=== PATIENT | male | born 1955 | race Caucasian/White ===

== ENCOUNTER 2019-01-19 18:22 | Inpatient (IN) | payer MEDICAID ==
[~2019-01-19] VITALS: Ht 172.7 cm; Wt 95.3 kg
[~2019-01-19 18:22] MED LIST: DONE10TA11 PO; LACT10SO7 MT; LEVE1000 PO; MEMA10TA2 PO; OLAN10TA3 PO; PHEN100C4 PO; PROP5POW MC
[2019-01-19] MEDS ORDERED: MORPHINE SULFATE 4 MG/ML CPJ (NOT FOR IM USE) IV STA (18:53)
[2019-01-19] MEDS ORDERED: SODIUM CHLORIDE 0.9% 1000ML BAG (SEPSIS BOLUS) IV ONE (19:00)
[2019-01-19] MEDS ORDERED: CEFTRIAXONE 1 G PREMIX 50 ML IV ONE (19:00)
[2019-01-19] MEDS ORDERED: LORAZEPAM 2MG/ML CPJ ONE ×3 (19:20→20:50)
[2019-01-19] MEDS ORDERED: ONDANSETRON HCL 4MG/2ML INJ ONE (19:23)
[2019-01-19 19:44] LABS: HEMATOCRIT. 47.4 % (42.0-52.0); HEMOGLOBIN. 15.9 g/dL (14.0-18.0); MEAN CORPUSCULAR HEMOGLOBIN 30.2 pg (28.0-32.0); MEAN CORPUSCULAR VOLUME 90.1 fL (80.0-94.0); MEAN PLATELET VOLUME 11.2 fl (7.4-10.4); PLATELET 181 x1000/uL (130-400); RED BLOOD CELL COUNT 5.27 mill/uL (4.7-6.1); RED CELL DISTRIBUTION WIDTH 13.2 % (11.6-14.6)
[2019-01-19 19:46] LABS: INR 1.1; PROTHROMBIN TIME 11.2 sec (9.6-11.0)
[2019-01-19 19:50] LABS: CHLORIDE 104 mEq/L (98-107)
[2019-01-19] MEDS ORDERED: PIPERACILLIN/TAZOBACTAM 3.375GM/50ML PREMIX IV ONE (20:00)
[2019-01-19] MEDS ORDERED: VANCOMYCIN 1 G PREMIX 200 ML IV SCH (20:00)
[2019-01-19] MEDS ORDERED: LORAZEPAM 2MG/ML CPJ IV ONE (20:15)
[2019-01-19] MEDS ORDERED: MIDAZOLAM HCL 50 MG in DEXTROSE 5% WATER 40 ML IV ONE (20:15)
[2019-01-19] MEDS ORDERED: FENTANYL CITRATE/PF 500 MCG in SODIUM CHLORIDE 0.9% 40 ML IV PRN (20:15)
[2019-01-19 20:16] LABS: CLARITY URINE CLOUDY (CLEAR); COLOR URINE DARK YELLOW (YELLOW); KETONES URINE TRACE (NEGATIVE); LEUKOCYTE ESTERASE URINE TRACE (NEGATIVE); NITRITE URINE NEGATIVE (NEGATIVE); OCCULT BLOOD URINE NEGATIVE (NEGATIVE); PH URINE 5.5 (4.5-8.0); PROTEIN URINE 2+ (NEGATIVE)
[2019-01-19 20:18] LABS: PLATELET ESTIMATE NORMAL
[2019-01-19] MEDS: FENTANYL 500 MCG in SODIUM CHLORIDE 0.9% 50 ML IV PRN (21:12)
[2019-01-19 21:29] LABS: BG CARBOXYHEMOGLOBIN 1.2 % (0.5-1.5); BG DEOXYHEMOGLOBIN 3.8 % (0.0-5.0); BG FRACTION INSPIRED OXYGEN 40; BG METHEMOGLOBIN 0.4 % (0.0-1.5); BG OXYGEN SATURATION 96.1 % (92.0-98.5); BG OXYHEMOGLOBIN 94.6 % (94.0-97.0); BG PCO2 42.3 mmHg (35.0-45.0); BG PO2 79.4 mmHg (75.0-100.0); BG SAMPLE SITE RIGHT RADIAL; BG TIDAL VOLUME(mL) 500 mL; BG TOTAL HEMOGLOBIN 13.9 g/dL (12.0-18.0); BG VENT MODE VENT - A/C; BG VENT RATE 12 set
[2019-01-19] MEDS: MIDAZOLAM HCL 50 MG in DEXTROSE 5% WATER 50ML IV PRN (22:04)
[2019-01-19] MEDS: IPRATROPIUM/ALBUTEROL 0.5-3(2.5)MG/3ML NEB HHN SCH (22:45)
[2019-01-19] MEDS ORDERED: IPRATROPIUM/ALBUTEROL 0.5-3(2.5)MG/3ML NEB NEB PRN (22:45)
[2019-01-19] MEDS ORDERED: DOCUSATE SODIUM 100MG CAPSULE PO PRN (22:45)
[2019-01-19] MEDS ORDERED: ONDANSETRON HCL 4MG/2ML INJ IV PRN (22:45)
[2019-01-20] VITALS (12 sets, daily range): BP systolic 94–131; BP diastolic 48–78
[2019-01-20 06:48] LABS: BASOPHILS % 0.5 % (0.0-2.0); EOSINOPHILS % 0.1 % (0.0-5.0); HEMATOCRIT. 39.7 % (42.0-52.0); HEMOGLOBIN. 13.8 g/dL (14.0-18.0); LYMPHOCYTES % 10.1 % (20.0-50.0); MEAN CORPUSCULAR HEMOGLOBIN 30.9 pg (28.0-32.0); MEAN CORPUSCULAR VOLUME 89.3 fL (80.0-94.0); MEAN PLATELET VOLUME 10.7 fl (7.4-10.4); MONOCYTES % 8.3 % (2.0-8.0); PLATELET 142 x1000/uL (130-400); RED BLOOD CELL COUNT 4.45 mill/uL (4.7-6.1); RED CELL DISTRIBUTION WIDTH 12.9 % (11.6-14.6)
[2019-01-20 06:54] LABS: CHLORIDE 109 mEq/L (98-107)
[2019-01-20 07:53] LABS: BG BASE EXCESS 3.6 mmol/L (-2.0-2.0); BG CARBOXYHEMOGLOBIN 0.9 % (0.5-1.5); BG DEOXYHEMOGLOBIN 1.9 % (0.0-5.0); BG FRACTION INSPIRED OXYGEN 50; BG HCO3 ACT 27.5 mmol/L (22.0-26.0); BG METHEMOGLOBIN 0.3 % (0.0-1.5); BG OXYGEN SATURATION 98.1 % (92.0-98.5); BG OXYHEMOGLOBIN 96.9 % (94.0-97.0); BG PH 7.466 (7.350-7.450); BG PO2 100.3 mmHg (75.0-100.0); BG SAMPLE SITE RIGHT RADIAL; BG TIDAL VOLUME(mL) 500 mL; BG TOTAL HEMOGLOBIN 14.5 g/dL (12.0-18.0); BG VENT MODE VENT - A/C; BG VENT RATE 12 set
[2019-01-20] MEDS: LORAZEPAM 2MG/ML CPJ IV PRN ×4 (07:53→17:29)
[2019-01-20] MEDS: MIDAZOLAM HCL 50 MG in DEXTROSE 5% WATER 50ML IV PRN ×3 (08:14→18:53)
[2019-01-20] MEDS: SODIUM CHLORIDE 0.9% 1,000 ML IV SCH ×2 (11:28→18:10)
[2019-01-20] MEDS ORDERED: ENOXAPARIN 40MG/0.4ML SYR SUBCUT NR (11:30)
[2019-01-20] MEDS ORDERED: PIPERACILLIN/TAZ 3.375G PREMIX 50 ML IV NR (11:30)
[2019-01-20] MEDS ORDERED: VANCOMYCIN 2,000 MG in DEXT 5% WATER 500 ML IV NR (11:45)
[2019-01-20] MEDS: FENTANYL 500 MCG in SODIUM CHLORIDE 0.9% 50 ML IV PRN ×2 (15:39→19:21)
[2019-01-20] MEDS: IPRATROPIUM/ALBUTEROL 0.5-3(2.5)MG/3ML NEB HHN SCH (16:00)
[2019-01-20 16:01] LABS: BASOPHILS % 0.2 % (0.0-2.0); EOSINOPHILS % 0.4 % (0.0-5.0); HEMATOCRIT. 39.3 % (42.0-52.0); HEMOGLOBIN. 13.5 g/dL (14.0-18.0); LYMPHOCYTES % 11.6 % (20.0-50.0); MEAN CORPUSCULAR HEMOGLOBIN 30.6 pg (28.0-32.0); MEAN CORPUSCULAR VOLUME 89.4 fL (80.0-94.0); MEAN PLATELET VOLUME 10.2 fl (7.4-10.4); MONOCYTES % 7.6 % (2.0-8.0); NEUTROPHILS % 80.2 % (40.0-76.0); PLATELET 141 x1000/uL (130-400); RED CELL DISTRIBUTION WIDTH 12.8 % (11.6-14.6)
[2019-01-20 16:09] LABS: INR 1.1; PROTHROMBIN TIME 10.9 sec (9.6-11.0)
[2019-01-20 16:10] LABS: CHLORIDE 107 mEq/L (98-107)
[2019-01-20 16:19] LABS: CREATINE KINASE 41 IU/L (39-308)
[2019-01-20 16:20] LABS: CREATINE KINASE MB FRACTION < 1.0 ng/mL (0.5-3.6)
[2019-01-20] MEDS ORDERED: LEVETIRACETAM 500MG PREMIX 100 ML IV NR (16:58)
[2019-01-20] MEDS ORDERED: PIPERACILLIN/TAZ 3.375G PREMIX 50 ML IV SCH ×2 (18:00→19:15)
[2019-01-20] MEDS: PROPOFOL 10MG/ML 100ML 100 ML IV SCH (20:16)
[2019-01-20 21:07] LABS: T4 FREE 1.11 ng/dL (0.76-1.46)
[2019-01-20 21:28] LABS: FOLIC ACID (FOLATE) SERUM 10.2 ng/mL (>5.38)
[2019-01-20] MEDS: VANCOMYCIN 1 G PREMIX 200 ML IV SCH (23:26)
[2019-01-21] VITALS (92 sets, daily range): BP systolic 62–151; BP diastolic 27–83
[2019-01-21] MEDS: IPRATROPIUM/ALBUTEROL 0.5-3(2.5)MG/3ML NEB HHN SCH ×6 (00:11→20:47)
[2019-01-21] MEDS: MIDAZOLAM HCL 50 MG in DEXTROSE 5% WATER 40 ML IV PRN ×3 (01:07→18:31)
[2019-01-21] MEDS: FENTANYL CITRATE/PF 500 MCG in SODIUM CHLORIDE 0.9% 40 ML IV PRN ×3 (01:08→17:45)
[2019-01-21] MEDS: SODIUM CHLORIDE 0.9% 1,000 ML IV SCH (01:08)
[2019-01-21] MEDS: PIPERACILLIN/TAZOBACTAM 3.375 G in DEXT 5% WATER 100 ML IV SCH ×3 (04:59→22:03)
[2019-01-21 06:48] LABS: BASOPHILS % 0.5 % (0.0-2.0); EOSINOPHILS % 1.2 % (0.0-5.0); HEMATOCRIT. 39.4 % (42.0-52.0); HEMOGLOBIN. 13.5 g/dL (14.0-18.0); LYMPHOCYTES % 11.4 % (20.0-50.0); MEAN CORPUSCULAR HEMOGLOBIN 30.8 pg (28.0-32.0); MEAN CORPUSCULAR VOLUME 90.1 fL (80.0-94.0); MEAN PLATELET VOLUME 10.9 fl (7.4-10.4); NEUTROPHILS % 77.9 % (40.0-76.0); PLATELET 139 x1000/uL (130-400); RED BLOOD CELL COUNT 4.38 mill/uL (4.7-6.1)
[2019-01-21] MEDS: VANCOMYCIN 1 G PREMIX 200 ML IV SCH ×2 (07:32→15:06)
[2019-01-21] MEDS: PROPOFOL 10MG/ML 100ML 100 ML IV SCH (07:35)
[2019-01-21 08:11] LABS: CHLORIDE 110 mEq/L (98-107)
[2019-01-21 08:25] LABS: BG BASE EXCESS -0.4 mmol/L (-2.0-2.0); BG CARBOXYHEMOGLOBIN 0.3 % (0.5-1.5); BG DEOXYHEMOGLOBIN 1.3 % (0.0-5.0); BG FRACTION INSPIRED OXYGEN 50; BG OXYGEN SATURATION 98.7 % (92.0-98.5); BG OXYHEMOGLOBIN 98.4 % (94.0-97.0); BG PCO2 43.8 mmHg (35.0-45.0); BG PH 7.374 (7.350-7.450); BG PO2 139.8 mmHg (75.0-100.0); BG SAMPLE SITE RIGHT RADIAL; BG TIDAL VOLUME(mL) 500 mL; BG TOTAL HEMOGLOBIN 14.6 g/dL (12.0-18.0); BG VENT MODE VENT - A/C; BG VENT RATE 12 set
[2019-01-21] MEDS: LORAZEPAM 2MG/ML CPJ IV PRN (08:58)
[2019-01-21] MEDS: ACETAMINOPHEN 325MG TABLET PO PRN (08:59)
[2019-01-21] MEDS ORDERED: LEVETIRACETAM 500 MG in SODIUM CHLORIDE 0.9% 100 ML IV SCH (09:00)
[2019-01-21] MEDS ORDERED: ENOXAPARIN 30MG/0.3ML SYR SUBCUT SCH (09:00)
[2019-01-21] MEDS ORDERED: NOREPINEPHRINE 4MG/250ML PMX 250 ML IV ONE (11:00)
[2019-01-21] MEDS ORDERED: PHENYLEPHRINE 20 MG in DEXT 5% WATER 248 ML IV PRN (11:00)
[2019-01-21] MEDS: PANTOPRAZOLE SODIUM 40 MG/VIAL IV SCH (11:43)
[2019-01-21] MEDS ORDERED: POTASSIUM CHLORIDE INJ 40 MEQ in DEXT 5% WATER 250 ML IV NR (13:00)
[2019-01-21] MEDS ORDERED: LIDOCAINE HCL 1% 20ML VIAL (Pyxis) INJ ONE (14:07)
[2019-01-21] MEDS: NOREPINEPHRINE 4 MG in DEXTROSE 5% WATER 250 ML IV PRN (15:08)
[2019-01-21] MEDS: PHENYTOIN SODIUM 100MG/2ML VIAL IV SCH (22:02)
[2019-01-21] MEDS: LEVETIRACETAM 1,000 MG in SODIUM CHLORIDE 0.9% 100 ML IV SCH (22:03)
[2019-01-22] VITALS (97 sets, daily range): BP systolic 82–146; BP diastolic 41–90
[2019-01-22] MEDS ORDERED: LEVE10006 PO (00:24)
[2019-01-22] MEDS ORDERED: OLAN10TA19 PO (00:24)
[2019-01-22] MEDS ORDERED: PHEN100C12 PO (00:24)
[2019-01-22] MEDS ORDERED: LACT10SO7 PO (00:24)
[2019-01-22] MEDS ORDERED: MEMA10TA55 PO (00:24)
[2019-01-22] MEDS ORDERED: DONE10TA43 PO (00:24)
[2019-01-22] MEDS: VANCOMYCIN 1250MG in DEXTROSE 5% WATER 250ML IV SCH ×4 (00:31→23:14)
[2019-01-22] MEDS: IPRATROPIUM/ALBUTEROL 0.5-3(2.5)MG/3ML NEB HHN SCH ×6 (00:41→20:26)
[2019-01-22] MEDS: FENTANYL CITRATE/PF 500 MCG in SODIUM CHLORIDE 0.9% 40 ML IV PRN ×3 (03:58→23:41)
[2019-01-22] MEDS: MIDAZOLAM HCL 50 MG in DEXTROSE 5% WATER 40 ML IV PRN ×3 (03:59→23:42)
[2019-01-22] MEDS: PIPERACILLIN/TAZOBACTAM 3.375 G in DEXT 5% WATER 100 ML IV SCH ×3 (06:38→21:25)
[2019-01-22] MEDS: PANTOPRAZOLE SODIUM 40 MG/VIAL IV SCH (08:12)
[2019-01-22 08:57] LABS: BASOPHILS % 0.6 % (0.0-2.0); EOSINOPHILS % 2.6 % (0.0-5.0); HEMATOCRIT. 31.8 % (42.0-52.0); HEMOGLOBIN. 10.7 g/dL (14.0-18.0); LYMPHOCYTES % 12.9 % (20.0-50.0); MEAN CORPUSCULAR HEMOGLOBIN 30.3 pg (28.0-32.0); MEAN CORPUSCULAR VOLUME 89.7 fL (80.0-94.0); MEAN PLATELET VOLUME 10.9 fl (7.4-10.4); MONOCYTES % 9.7 % (2.0-8.0); NEUTROPHILS % 74.2 % (40.0-76.0); PLATELET 136 x1000/uL (130-400); RED BLOOD CELL COUNT 3.54 mill/uL (4.7-6.1); RED CELL DISTRIBUTION WIDTH 12.6 % (11.6-14.6)
[2019-01-22 09:38] LABS: CHLORIDE 111 mEq/L (98-107)
[2019-01-22] MEDS: SODIUM CHLORIDE 0.9% 1,000 ML IV SCH (10:41)
[2019-01-22] MEDS: LEVETIRACETAM 1,000 MG in SODIUM CHLORIDE 0.9% 100 ML IV SCH (10:41)
[2019-01-22] MEDS ORDERED: KCL 20MEQ/100ML PREMIX 100 ML IV SCH ×2 (12:00→14:00)
[2019-01-22] MEDS ORDERED: PHENYTOIN SODIUM 100MG/2ML VIAL IV NR (13:30)
[2019-01-22] MEDS: LORAZEPAM 2MG/ML CPJ IV PRN (15:02)
[2019-01-22] MEDS ORDERED: VASOPRESSIN 10 UNIT in SODIUM CHLORIDE 0.9% 99.5 ML IV PRN (15:30)
[2019-01-22] MEDS: PHENYTOIN SODIUM 100MG/2ML VIAL IV SCH (21:25)
[2019-01-22] MEDS: LEVETIRACETAM 1,500 MG in SODIUM CHLORIDE 0.9% 100 ML IV SCH (21:36)
[2019-01-23] VITALS (98 sets, daily range): BP systolic 80–154; BP diastolic 39–88
[2019-01-23] MEDS: IPRATROPIUM/ALBUTEROL 0.5-3(2.5)MG/3ML NEB HHN SCH ×6 (00:17→20:23)
[2019-01-23] MEDS: SODIUM CHLORIDE 0.9% 1,000 ML IV SCH ×2 (04:55→18:37)
[2019-01-23] MEDS: LORAZEPAM 2MG/ML CPJ IV PRN (05:08)
[2019-01-23 05:39] LABS: BASOPHILS % 0.5 % (0.0-2.0); HEMATOCRIT. 40.1 % (42.0-52.0); HEMOGLOBIN. 13.4 g/dL (14.0-18.0); LYMPHOCYTES % 14.9 % (20.0-50.0); MEAN PLATELET VOLUME 10.8 fl (7.4-10.4); MONOCYTES % 10.6 % (2.0-8.0); PLATELET 173 x1000/uL (130-400); RED BLOOD CELL COUNT 4.46 mill/uL (4.7-6.1); RED CELL DISTRIBUTION WIDTH 12.9 % (11.6-14.6)
[2019-01-23] MEDS: MIDAZOLAM HCL 50 MG in DEXTROSE 5% WATER 40 ML IV PRN ×3 (05:45→19:41)
[2019-01-23] MEDS: FENTANYL CITRATE/PF 500 MCG in SODIUM CHLORIDE 0.9% 40 ML IV PRN ×3 (05:45→18:38)
[2019-01-23 05:47] LABS: CHLORIDE 106 mEq/L (98-107)
[2019-01-23] MEDS: PIPERACILLIN/TAZOBACTAM 3.375 G in DEXT 5% WATER 100 ML IV SCH ×3 (07:15→21:14)
[2019-01-23] MEDS: VANCOMYCIN 1250MG in DEXTROSE 5% WATER 250ML IV SCH (07:15)
[2019-01-23] MEDS ORDERED: MAGNESIUM 1 G PREMIX 100 ML IV NR (08:00)
[2019-01-23] MEDS ORDERED: KCL 20MEQ/100ML PREMIX 100 ML IV NR (09:00)
[2019-01-23] MEDS: PANTOPRAZOLE SODIUM 40 MG/VIAL IV SCH (09:06)
[2019-01-23] MEDS: LEVETIRACETAM 1,500 MG in SODIUM CHLORIDE 0.9% 100 ML IV SCH ×2 (10:34→21:14)
[2019-01-23] MEDS ORDERED: POTASSIUM CHLORIDE INJ 40 MEQ in DEXT 5% WATER 250 ML IV NR (11:00)
[2019-01-23 15:54] LABS: BG BASE EXCESS 5.6 mmol/L (-2.0-2.0); BG CARBOXYHEMOGLOBIN 0.3 % (0.5-1.5); BG FRACTION INSPIRED OXYGEN 40; BG HCO3 ACT 30.8 mmol/L (22.0-26.0); BG METHEMOGLOBIN 0.1 % (0.0-1.5); BG OXYHEMOGLOBIN 96.6 % (94.0-97.0); BG PCO2 47.5 mmHg (35.0-45.0); BG PO2 96.6 mmHg (75.0-100.0); BG SAMPLE SITE RIGHT RADIAL; BG TIDAL VOLUME(mL) 500 mL; BG TOTAL HEMOGLOBIN 12.8 g/dL (12.0-18.0); BG VENT MODE VENT - A/C; BG VENT RATE 12 set
[2019-01-23] MEDS: PHENYTOIN SODIUM 100MG/2ML VIAL IV SCH (21:14)
[2019-01-24] VITALS (92 sets, daily range): BP systolic 76–149; BP diastolic 40–80
[2019-01-24] MEDS: IPRATROPIUM/ALBUTEROL 0.5-3(2.5)MG/3ML NEB HHN SCH ×6 (00:12→20:05)
[2019-01-24] MEDS: FENTANYL CITRATE/PF 500 MCG in SODIUM CHLORIDE 0.9% 40 ML IV PRN ×3 (02:07→23:00)
[2019-01-24] MEDS: MIDAZOLAM HCL 50 MG in DEXTROSE 5% WATER 40 ML IV PRN ×3 (02:09→23:00)
[2019-01-24] MEDS: VANCOMYCIN 1 G PREMIX 200 ML IV SCH ×2 (04:01→14:21)
[2019-01-24 06:00] LABS: BASOPHILS % 0.5 % (0.0-2.0); EOSINOPHILS % 5.3 % (0.0-5.0); HEMATOCRIT. 36.6 % (42.0-52.0); HEMOGLOBIN. 12.2 g/dL (14.0-18.0); MEAN CORPUSCULAR HEMOGLOBIN 30.1 pg (28.0-32.0); MEAN PLATELET VOLUME 10.3 fl (7.4-10.4); NEUTROPHILS % 76.2 % (40.0-76.0); PLATELET 185 x1000/uL (130-400); RED BLOOD CELL COUNT 4.06 mill/uL (4.7-6.1); RED CELL DISTRIBUTION WIDTH 12.9 % (11.6-14.6)
[2019-01-24 06:08] LABS: CHLORIDE 110 mEq/L (98-107)
[2019-01-24] MEDS: PIPERACILLIN/TAZOBACTAM 3.375 G in DEXT 5% WATER 100 ML IV SCH ×3 (06:36→22:31)
[2019-01-24] MEDS: LEVETIRACETAM 1,500 MG in SODIUM CHLORIDE 0.9% 100 ML IV SCH ×2 (08:10→21:00)
[2019-01-24] MEDS: PANTOPRAZOLE SODIUM 40 MG/VIAL IV SCH (08:10)
[2019-01-24] MEDS: NOREPINEPHRINE 4 MG in DEXTROSE 5% WATER 250 ML IV PRN (09:48)
[2019-01-24 10:01] LABS: PHOSPHORUS 2.5 mg/dL (2.5-4.9)
[2019-01-24] MEDS ORDERED: POTASSIUM CHLORIDE INJ 60 MEQ in DEXT 5% WATER 500 ML IV NR (11:00)
[2019-01-24] MEDS: SODIUM CHLORIDE 0.9% 1,000 ML IV SCH (14:22)
[2019-01-24] MEDS: PHENYTOIN SODIUM 100MG/2ML VIAL IV SCH (21:00)
[2019-01-25] VITALS (42 sets, daily range): BP systolic 102–173; BP diastolic 52–113
[2019-01-25] MEDS: IPRATROPIUM/ALBUTEROL 0.5-3(2.5)MG/3ML NEB HHN SCH ×7 (00:14→23:56)
[2019-01-25] MEDS: FENTANYL CITRATE/PF 500 MCG in SODIUM CHLORIDE 0.9% 40 ML IV PRN ×2 (03:22→11:56)
[2019-01-25] MEDS: VANCOMYCIN 1 G PREMIX 200 ML IV SCH ×2 (03:23→16:22)
[2019-01-25] MEDS: SODIUM CHLORIDE 0.9% 1,000 ML IV SCH ×2 (04:02→16:37)
[2019-01-25] MEDS: PIPERACILLIN/TAZOBACTAM 3.375 G in DEXT 5% WATER 100 ML IV SCH ×3 (06:00→21:03)
[2019-01-25 06:13] LABS: CHLORIDE 112 mEq/L (98-107)
[2019-01-25] MEDS: PANTOPRAZOLE SODIUM 40 MG/VIAL IV SCH (08:57)
[2019-01-25] MEDS: LEVETIRACETAM 1,500 MG in SODIUM CHLORIDE 0.9% 100 ML IV SCH ×2 (08:57→20:38)
[2019-01-25 13:02] LABS: HEMATOCRIT. 37.2 % (42.0-52.0); HEMOGLOBIN. 12.3 g/dL (14.0-18.0); MEAN CORPUSCULAR HEMOGLOBIN 29.9 pg (28.0-32.0); MEAN CORPUSCULAR VOLUME 90.1 fL (80.0-94.0); PLATELET 208 x1000/uL (130-400); RED BLOOD CELL COUNT 4.13 mill/uL (4.7-6.1); RED CELL DISTRIBUTION WIDTH 13.1 % (11.6-14.6)
[2019-01-25 13:36] LABS: CHLORIDE 112 mEq/L (98-107)
[2019-01-25] MEDS: PHENYTOIN SODIUM 100MG/2ML VIAL IV SCH (20:38)
[2019-01-25 21:00] LABS: PLATELET ESTIMATE NORMAL
[2019-01-25] MEDS ORDERED: FENTANYL CITRATE/PF 500 MCG in SODIUM CHLORIDE 0.9% 40 ML IV PRN (23:45)
[2019-01-26] VITALS (42 sets, daily range): BP systolic 111–163; BP diastolic 58–100
[2019-01-26] MEDS: VANCOMYCIN 1 G PREMIX 200 ML IV SCH (03:18)
[2019-01-26] MEDS: IPRATROPIUM/ALBUTEROL 0.5-3(2.5)MG/3ML NEB HHN SCH ×5 (04:01→20:16)
[2019-01-26] MEDS: PIPERACILLIN/TAZOBACTAM 3.375 G in DEXT 5% WATER 100 ML IV SCH ×3 (05:08→21:32)
[2019-01-26 06:01] LABS: EOSINOPHILS % 5.2 % (0.0-5.0); HEMATOCRIT. 32.8 % (42.0-52.0); HEMOGLOBIN. 11.1 g/dL (14.0-18.0); LYMPHOCYTES % 8.8 % (20.0-50.0); MEAN CORPUSCULAR HEMOGLOBIN 30.3 pg (28.0-32.0); MEAN CORPUSCULAR VOLUME 89.5 fL (80.0-94.0); MEAN PLATELET VOLUME 10.5 fl (7.4-10.4); MONOCYTES % 9.5 % (2.0-8.0); NEUTROPHILS % 75.5 % (40.0-76.0); PLATELET 220 x1000/uL (130-400); RED BLOOD CELL COUNT 3.67 mill/uL (4.7-6.1)
[2019-01-26 06:05] LABS: CHLORIDE 108 mEq/L (98-107)
[2019-01-26] MEDS: SODIUM CHLORIDE 0.9% 1,000 ML IV SCH ×2 (06:05→20:26)
[2019-01-26] MEDS: PANTOPRAZOLE SODIUM 40 MG/VIAL IV SCH (08:16)
[2019-01-26 08:46] LABS: PHOSPHORUS 2.3 mg/dL (2.5-4.9)
[2019-01-26] MEDS: LEVETIRACETAM 1,500 MG in SODIUM CHLORIDE 0.9% 100 ML IV SCH ×2 (09:21→21:31)
[2019-01-26] MEDS: HALOPERIDOL LACTATE 5MG/ML VIAL IM PRN (11:39)
[2019-01-26] MEDS ORDERED: POTASSIUM PHOS,M-BASIC-D-BASIC 30 MMOL in DEXT 5% WATER 500 ML IV SCH (12:00)
[2019-01-26] MEDS: VANCOMYCIN 1250MG in DEXTROSE 5% WATER 250ML IV SCH (15:23)
[2019-01-26 16:16] LABS: BG BASE EXCESS 4.3 mmol/L (-2.0-2.0); BG CARBOXYHEMOGLOBIN 0.2 % (0.5-1.5); BG DEOXYHEMOGLOBIN 1.9 % (0.0-5.0); BG FRACTION INSPIRED OXYGEN 40; BG HCO3 ACT 29.3 mmol/L (22.0-26.0); BG METHEMOGLOBIN 0.1 % (0.0-1.5); BG OXYGEN SATURATION 98.1 % (92.0-98.5); BG OXYHEMOGLOBIN 97.8 % (94.0-97.0); BG PCO2 45.2 mmHg (35.0-45.0); BG PO2 109.9 mmHg (75.0-100.0); BG PRESSURE SUPPORT 0; BG SAMPLE SITE RIGHT RADIAL; BG TIDAL VOLUME(mL) 500 mL; BG TOTAL HEMOGLOBIN 13.4 g/dL (12.0-18.0); BG VENT MODE VENT - SIMV; BG VENT RATE 12 set
[2019-01-26] MEDS: PHENYTOIN SODIUM 100MG/2ML VIAL IV SCH (21:31)
[2019-01-27] VITALS (38 sets, daily range): BP systolic 116–157; BP diastolic 65–85
[2019-01-27] MEDS: IPRATROPIUM/ALBUTEROL 0.5-3(2.5)MG/3ML NEB HHN SCH ×5 (00:15→20:26)
[2019-01-27] MEDS: VANCOMYCIN 1250MG in DEXTROSE 5% WATER 250ML IV SCH (03:44)
[2019-01-27] MEDS: PIPERACILLIN/TAZOBACTAM 3.375 G in DEXT 5% WATER 100 ML IV SCH (05:32)
[2019-01-27 06:19] LABS: BASOPHILS % 0.4 % (0.0-2.0); EOSINOPHILS % 5.1 % (0.0-5.0); HEMATOCRIT. 33.5 % (42.0-52.0); HEMOGLOBIN. 11.4 g/dL (14.0-18.0); LYMPHOCYTES % 8.9 % (20.0-50.0); MEAN CORPUSCULAR HEMOGLOBIN 30.5 pg (28.0-32.0); MEAN CORPUSCULAR VOLUME 89.8 fL (80.0-94.0); MEAN PLATELET VOLUME 10.7 fl (7.4-10.4); MONOCYTES % 8.5 % (2.0-8.0); NEUTROPHILS % 77.1 % (40.0-76.0); PLATELET 253 x1000/uL (130-400); RED BLOOD CELL COUNT 3.73 mill/uL (4.7-6.1); RED CELL DISTRIBUTION WIDTH 12.6 % (11.6-14.6)
[2019-01-27 06:28] LABS: CHLORIDE 108 mEq/L (98-107)
[2019-01-27 06:34] LABS: PHOSPHORUS 2.7 mg/dL (2.5-4.9)
[2019-01-27] MEDS: POTASSIUM CHLORIDE 20MEQ/PACKET PO SCH (08:53)
[2019-01-27] MEDS: LEVETIRACETAM 1,500 MG in SODIUM CHLORIDE 0.9% 100 ML IV SCH ×2 (08:53→20:56)
[2019-01-27] MEDS: PANTOPRAZOLE SODIUM 40 MG/VIAL IV SCH (08:53)
[2019-01-27] MEDS: SODIUM CHLORIDE 0.9% 1,000 ML IV SCH ×2 (12:20→22:21)
[2019-01-27] MEDS: PHENYTOIN SODIUM 100MG/2ML VIAL IV SCH (20:45)
[2019-01-28] VITALS (38 sets, daily range): BP systolic 113–168; BP diastolic 57–103
[2019-01-28] MEDS: IPRATROPIUM/ALBUTEROL 0.5-3(2.5)MG/3ML NEB HHN SCH ×6 (00:39→20:51)
[2019-01-28 06:18] LABS: BASOPHILS % 0.7 % (0.0-2.0); EOSINOPHILS % 3.8 % (0.0-5.0); HEMATOCRIT. 35.1 % (42.0-52.0); HEMOGLOBIN. 11.9 g/dL (14.0-18.0); LYMPHOCYTES % 8.6 % (20.0-50.0); MEAN CORPUSCULAR HEMOGLOBIN 30.2 pg (28.0-32.0); MEAN CORPUSCULAR VOLUME 89.6 fL (80.0-94.0); MEAN PLATELET VOLUME 10.5 fl (7.4-10.4); MONOCYTES % 8.2 % (2.0-8.0); NEUTROPHILS % 78.7 % (40.0-76.0); PLATELET 282 x1000/uL (130-400); RED BLOOD CELL COUNT 3.92 mill/uL (4.7-6.1); RED CELL DISTRIBUTION WIDTH 12.8 % (11.6-14.6)
[2019-01-28 06:33] LABS: CHLORIDE 109 mEq/L (98-107)
[2019-01-28] MEDS: POTASSIUM CHLORIDE 20MEQ/PACKET PO SCH (08:12)
[2019-01-28] MEDS: PANTOPRAZOLE SODIUM 40 MG/VIAL IV SCH (08:12)
[2019-01-28 09:46] LABS: BG BASE EXCESS 3.1 mmol/L (-2.0-2.0); BG CARBOXYHEMOGLOBIN 0.3 % (0.5-1.5); BG DEOXYHEMOGLOBIN 2.2 % (0.0-5.0); BG FRACTION INSPIRED OXYGEN 40; BG HCO3 ACT 27.9 mmol/L (22.0-26.0); BG METHEMOGLOBIN 0.2 % (0.0-1.5); BG OXYGEN SATURATION 97.8 % (92.0-98.5); BG OXYHEMOGLOBIN 97.3 % (94.0-97.0); BG PCO2 43.3 mmHg (35.0-45.0); BG PH 7.427 (7.350-7.450); BG PO2 111.2 mmHg (75.0-100.0); BG PRESSURE SUPPORT 12; BG SAMPLE SITE RIGHT RADIAL; BG TIDAL VOLUME(mL) 500 mL; BG TOTAL HEMOGLOBIN 12.9 g/dL (12.0-18.0); BG VENT MODE VENT - SIMV; BG VENT RATE 12 set
[2019-01-28] MEDS: LEVETIRACETAM 1,500 MG in SODIUM CHLORIDE 0.9% 100 ML IV SCH (09:54)
[2019-01-28] MEDS: SODIUM CHLORIDE 0.9% 1,000 ML IV SCH (12:26)
[2019-01-28] MEDS ORDERED: LORAZEPAM 2MG/ML CPJ IM PRN (18:30)
[2019-01-28] MEDS: LEVETIRACETAM 500MG/5ML CUP PO SCH (20:38)
[2019-01-28] MEDS: PHENYTOIN 100 MG/4 ML UDC NG SCH (20:39)
[2019-01-29] VITALS (43 sets, daily range): BP systolic 116–165; BP diastolic 66–121
[2019-01-29] MEDS: IPRATROPIUM/ALBUTEROL 0.5-3(2.5)MG/3ML NEB HHN SCH ×6 (00:25→20:10)
[2019-01-29] MEDS: SODIUM CHLORIDE 0.9% 1,000 ML IV SCH ×2 (01:26→15:43)
[2019-01-29 06:43] LABS: BASOPHILS % 0.8 % (0.0-2.0); EOSINOPHILS % 3.2 % (0.0-5.0); HEMATOCRIT. 35.6 % (42.0-52.0); MEAN CORPUSCULAR HEMOGLOBIN 30.1 pg (28.0-32.0); MEAN CORPUSCULAR VOLUME 89.2 fL (80.0-94.0); MEAN PLATELET VOLUME 10.8 fl (7.4-10.4); MONOCYTES % 6.5 % (2.0-8.0); NEUTROPHILS % 80.5 % (40.0-76.0); PLATELET 301 x1000/uL (130-400); RED CELL DISTRIBUTION WIDTH 12.9 % (11.6-14.6)
[2019-01-29 06:58] LABS: CHLORIDE 108 mEq/L (98-107)
[2019-01-29] MEDS: ENOXAPARIN 40MG/0.4ML SYR SUBCUT SCH (08:28)
[2019-01-29] MEDS: LEVETIRACETAM 500MG/5ML CUP PO SCH ×2 (08:28→21:00)
[2019-01-29] MEDS: POTASSIUM CHLORIDE 20MEQ/PACKET PO SCH (08:28)
[2019-01-29] MEDS: PANTOPRAZOLE SODIUM 40 MG/VIAL IV SCH (08:28)
[2019-01-29 10:11] LABS: BG BASE EXCESS 4.8 mmol/L (-2.0-2.0); BG DEOXYHEMOGLOBIN 2.1 % (0.0-5.0); BG FRACTION INSPIRED OXYGEN 40; BG HCO3 ACT 29.6 mmol/L (22.0-26.0); BG METHEMOGLOBIN 0.2 % (0.0-1.5); BG OXYGEN SATURATION 97.9 % (92.0-98.5); BG OXYHEMOGLOBIN 97.7 % (94.0-97.0); BG PCO2 44.6 mmHg (35.0-45.0); BG PO2 106.6 mmHg (75.0-100.0); BG PRESSURE SUPPORT 8; BG SAMPLE SITE RIGHT RADIAL; BG TOTAL HEMOGLOBIN 13.2 g/dL (12.0-18.0); BG VENT MODE VENT - CPAP
[2019-01-29] MEDS: PHENYTOIN 100 MG/4 ML UDC NG SCH (21:00)
[2019-01-29] MEDS: LORAZEPAM 2MG/ML CPJ IV PRN (22:18)
[2019-01-30] VITALS (40 sets, daily range): BP systolic 101–163; BP diastolic 49–103
[2019-01-30] MEDS: IPRATROPIUM/ALBUTEROL 0.5-3(2.5)MG/3ML NEB HHN SCH ×6 (00:10→21:11)
[2019-01-30] MEDS: SODIUM CHLORIDE 0.9% 1,000 ML IV SCH ×2 (05:03→17:40)
[2019-01-30] MEDS: PANTOPRAZOLE SODIUM 40 MG/VIAL IV SCH (08:14)
[2019-01-30] MEDS: POTASSIUM CHLORIDE 20MEQ/PACKET PO SCH (08:14)
[2019-01-30] MEDS: LEVETIRACETAM 500MG/5ML CUP PO SCH ×2 (08:14→22:49)
[2019-01-30] MEDS: ENOXAPARIN 40MG/0.4ML SYR SUBCUT SCH (08:15)
[2019-01-30 08:40] LABS: CHLORIDE 107 mEq/L (98-107)
[2019-01-30 08:50] LABS: BASOPHILS % 0.5 % (0.0-2.0); EOSINOPHILS % 2.2 % (0.0-5.0); HEMATOCRIT. 35.6 % (42.0-52.0); HEMOGLOBIN. 11.9 g/dL (14.0-18.0); LYMPHOCYTES % 7.1 % (20.0-50.0); MEAN CORPUSCULAR HEMOGLOBIN 29.7 pg (28.0-32.0); MEAN CORPUSCULAR VOLUME 88.7 fL (80.0-94.0); MEAN PLATELET VOLUME 10.5 fl (7.4-10.4); NEUTROPHILS % 84.2 % (40.0-76.0); PLATELET 331 x1000/uL (130-400); RED BLOOD CELL COUNT 4.01 mill/uL (4.7-6.1); RED CELL DISTRIBUTION WIDTH 12.9 % (11.6-14.6)
[2019-01-30] MEDS: LORAZEPAM 2MG/ML CPJ IV PRN ×2 (12:34→21:26)
[2019-01-30 17:14] LABS: CLARITY URINE CLEAR (CLEAR); COLOR URINE YELLOW (YELLOW); KETONES URINE NEGATIVE (NEGATIVE); LEUKOCYTE ESTERASE URINE NEGATIVE (NEGATIVE); NITRITE URINE NEGATIVE (NEGATIVE); OCCULT BLOOD URINE 2+ (NEGATIVE); PROTEIN URINE NEGATIVE (NEGATIVE); SPECIFIC GRAVITY URINE 1.011 (1.005-1.030); UROBILINOGEN URINE 0.2 E.U./dL (0.2-1.0)
[2019-01-30] MEDS: PHENYTOIN 100 MG/4 ML UDC NG SCH (21:08)
[2019-01-30] MEDS: ACETAMINOPHEN 325MG TABLET PO PRN (21:56)
[2019-01-31] VITALS (44 sets, daily range): BP systolic 119–172; BP diastolic 56–126
[2019-01-31] MEDS: IPRATROPIUM/ALBUTEROL 0.5-3(2.5)MG/3ML NEB HHN SCH ×6 (00:48→20:18)
[2019-01-31 05:58] LABS: BASOPHILS % 0.5 % (0.0-2.0); HEMOGLOBIN. 11.4 g/dL (14.0-18.0); LYMPHOCYTES % 7.9 % (20.0-50.0); MEAN CORPUSCULAR HEMOGLOBIN 30.1 pg (28.0-32.0); MEAN CORPUSCULAR VOLUME 89.3 fL (80.0-94.0); MEAN PLATELET VOLUME 10.9 fl (7.4-10.4); MONOCYTES % 5.3 % (2.0-8.0); NEUTROPHILS % 84.3 % (40.0-76.0); PLATELET 326 x1000/uL (130-400); RED CELL DISTRIBUTION WIDTH 12.9 % (11.6-14.6)
[2019-01-31 06:00] LABS: CHLORIDE 106 mEq/L (98-107)
[2019-01-31] MEDS: SODIUM CHLORIDE 0.9% 1,000 ML IV SCH ×2 (06:06→21:07)
[2019-01-31] MEDS: ENOXAPARIN 40MG/0.4ML SYR SUBCUT SCH (08:43)
[2019-01-31] MEDS: POTASSIUM CHLORIDE 20MEQ/PACKET PO SCH (08:43)
[2019-01-31] MEDS: PANTOPRAZOLE SODIUM 40 MG/VIAL IV SCH (08:43)
[2019-01-31] MEDS: LEVETIRACETAM 500MG/5ML CUP PO SCH ×2 (08:43→21:06)
[2019-01-31] MEDS: LORAZEPAM 2MG/ML CPJ IV PRN ×2 (09:05→18:05)
[2019-01-31] MEDS ORDERED: METHYLPREDNISOLONE SOD SUCC 125 MG/2 ML VIAL IV NR (17:45)
[2019-01-31] MEDS: METHYLPREDNISOLONE SOD SUCC 125 MG/2 ML VIAL IV SCH (21:06)
[2019-01-31] MEDS: PHENYTOIN 100 MG/4 ML UDC NG SCH (21:06)
[2019-02-01] VITALS (26 sets, daily range): BP systolic 99–150; BP diastolic 59–103
[2019-02-01] MEDS: IPRATROPIUM/ALBUTEROL 0.5-3(2.5)MG/3ML NEB HHN SCH ×6 (00:21→23:56)
[2019-02-01 08:49] LABS: HEMATOCRIT. 36.3 % (42.0-52.0); HEMOGLOBIN. 12.1 g/dL (14.0-18.0); MEAN CORPUSCULAR HEMOGLOBIN 29.9 pg (28.0-32.0); MEAN PLATELET VOLUME 11.1 fl (7.4-10.4); PLATELET 363 x1000/uL (130-400); RED BLOOD CELL COUNT 4.03 mill/uL (4.7-6.1); RED CELL DISTRIBUTION WIDTH 12.7 % (11.6-14.6)
[2019-02-01 08:56] LABS: CHLORIDE 104 mEq/L (98-107)
[2019-02-01] MEDS: LEVETIRACETAM 500MG/5ML CUP PO SCH ×2 (09:10→21:11)
[2019-02-01] MEDS: PANTOPRAZOLE SODIUM 40 MG/VIAL IV SCH (09:10)
[2019-02-01] MEDS: POTASSIUM CHLORIDE 20MEQ/PACKET PO SCH (09:10)
[2019-02-01] MEDS: SODIUM CHLORIDE 0.9% 1,000 ML IV SCH ×2 (09:11→21:12)
[2019-02-01] MEDS: ENOXAPARIN 40MG/0.4ML SYR SUBCUT SCH (09:33)
[2019-02-01] MEDS ORDERED: CEFAZOLIN 1000MG PREMIX 50 ML IV ONE (12:15)
[2019-02-01] MEDS: METHYLPREDNISOLONE SOD SUCC 125 MG/2 ML VIAL IV SCH ×2 (14:14→21:12)
[2019-02-01] MEDS: LORAZEPAM 2MG/ML CPJ IV PRN (14:14)
[2019-02-01 17:03] LABS: HEMATOCRIT 33.2 % (42.0-52.0); HEMOGLOBIN 10.4 g/dL (14.0-18.0); MEAN CORPUSCULAR HEMOGLOBIN 28.2 pg (28.0-32.0); MEAN CORPUSCULAR VOLUME 89.9 fL (80.0-94.0); PLATELET 327 x1000/uL (130-400); RED BLOOD CELL COUNT 3.69 mill/uL (4.7-6.1)
[2019-02-01 17:06] LABS: PLATELET ESTIMATE NORMAL
[2019-02-01] MEDS: PHENYTOIN 100 MG/4 ML UDC NG SCH (21:11)
[2019-02-02] VITALS (24 sets, daily range): BP systolic 104–147; BP diastolic 56–94
[2019-02-02] MEDS: IPRATROPIUM/ALBUTEROL 0.5-3(2.5)MG/3ML NEB HHN SCH ×6 (04:19→23:41)
[2019-02-02 05:31] LABS: HEMATOCRIT. 34.1 % (42.0-52.0); HEMOGLOBIN. 11.6 g/dL (14.0-18.0); MEAN CORPUSCULAR HEMOGLOBIN 30.3 pg (28.0-32.0); MEAN CORPUSCULAR VOLUME 89.3 fL (80.0-94.0); PLATELET 362 x1000/uL (130-400); RED BLOOD CELL COUNT 3.82 mill/uL (4.7-6.1)
[2019-02-02 05:36] LABS: PARTIAL THROMBOPLASTIN TIME 27.5 sec (23.4-31.0); PROTHROMBIN TIME 10.7 sec (9.6-11.0)
[2019-02-02 05:39] LABS: CHLORIDE 108 mEq/L (98-107)
[2019-02-02] MEDS: METHYLPREDNISOLONE SOD SUCC 125 MG/2 ML VIAL IV SCH ×3 (05:48→21:05)
[2019-02-02] MEDS: PANTOPRAZOLE SODIUM 40 MG/VIAL IV SCH (08:02)
[2019-02-02] MEDS: LORAZEPAM 2MG/ML CPJ IV PRN ×2 (08:02→16:13)
[2019-02-02] MEDS: SODIUM CHLORIDE 0.9% 1,000 ML IV SCH (08:37)
[2019-02-02 09:00] LABS: PLATELET ESTIMATE NORMAL
[2019-02-02] MEDS: LEVETIRACETAM 500MG/5ML CUP PO SCH ×2 (09:00→21:05)
[2019-02-02] MEDS: POTASSIUM CHLORIDE 20MEQ/PACKET PO SCH (09:00)
[2019-02-02] MEDS: PHENYTOIN 100 MG/4 ML UDC NG SCH (21:05)
[2019-02-03] VITALS (32 sets, daily range): BP systolic 104–181; BP diastolic 53–109
[2019-02-03] MEDS: IPRATROPIUM/ALBUTEROL 0.5-3(2.5)MG/3ML NEB HHN SCH ×4 (03:57→15:38)
[2019-02-03] MEDS: LORAZEPAM 2MG/ML CPJ IV PRN ×2 (04:24→21:24)
[2019-02-03] MEDS: METHYLPREDNISOLONE SOD SUCC 125 MG/2 ML VIAL IV SCH ×3 (05:23→21:24)
[2019-02-03 05:24] LABS: HEMATOCRIT. 35.6 % (42.0-52.0); HEMOGLOBIN. 11.9 g/dL (14.0-18.0); MEAN CORPUSCULAR HEMOGLOBIN 29.9 pg (28.0-32.0); MEAN CORPUSCULAR VOLUME 89.3 fL (80.0-94.0); PLATELET 335 x1000/uL (130-400); RED BLOOD CELL COUNT 3.99 mill/uL (4.7-6.1); RED CELL DISTRIBUTION WIDTH 12.9 % (11.6-14.6)
[2019-02-03 05:34] LABS: CHLORIDE 106 mEq/L (98-107)
[2019-02-03] MEDS: SODIUM CHLORIDE 0.9% 1,000 ML IV SCH ×2 (06:11→15:12)
[2019-02-03] MEDS: ENOXAPARIN 40MG/0.4ML SYR SUBCUT SCH (09:00)
[2019-02-03] MEDS: LEVETIRACETAM 500MG/5ML CUP PO SCH ×2 (09:04→21:16)
[2019-02-03] MEDS: POTASSIUM CHLORIDE 20MEQ/PACKET PO SCH (09:05)
[2019-02-03] MEDS: PANTOPRAZOLE SODIUM 40 MG/VIAL IV SCH (09:05)
[2019-02-03 09:43] LABS: PLATELET ESTIMATE NORMAL
[2019-02-03] MEDS ORDERED: MIDAZOLAM HCL 5 MG/5 ML VIAL ONE (15:12)
[2019-02-03] MEDS ORDERED: FENTANYL CITRATE/PF 50MCG/ML 2ML VIAL ONE (15:12)
[2019-02-03] MEDS ORDERED: FENTANYL CITRATE/PF 50MCG/ML 2ML VIAL IV PRN (15:21)
[2019-02-03] MEDS ORDERED: MIDAZOLAM HCL 5 MG/5 ML VIAL IV PRN (15:22)
[2019-02-03] MEDS ORDERED: CEFAZOLIN 1000MG PREMIX 50 ML IV ONE (15:45)
[2019-02-03] MEDS ORDERED: CEFAZOLIN 1000MG PREMIX 50 ML IV NR (15:45)
[2019-02-03] MEDS: PHENYTOIN 100 MG/4 ML UDC NG SCH (21:17)
[2019-02-03] MEDS: HALOPERIDOL LACTATE 5MG/ML VIAL IM PRN (21:24)
[2019-02-04] VITALS (12 sets, daily range): BP systolic 119–140; BP diastolic 68–99
[2019-02-04] MEDS: IPRATROPIUM/ALBUTEROL 0.5-3(2.5)MG/3ML NEB HHN SCH ×6 (00:26→20:57)
[2019-02-04] MEDS: SODIUM CHLORIDE 0.9% 1,000 ML IV SCH (05:28)
[2019-02-04] MEDS: METHYLPREDNISOLONE SOD SUCC 125 MG/2 ML VIAL IV SCH (05:29)
[2019-02-04] MEDS: PANTOPRAZOLE SODIUM 40 MG/VIAL IV SCH (08:56)
[2019-02-04] MEDS: LEVETIRACETAM 500MG/5ML CUP PO SCH ×2 (08:56→21:11)
[2019-02-04] MEDS: POTASSIUM CHLORIDE 20MEQ/PACKET PO SCH (08:56)
[2019-02-04] MEDS: ENOXAPARIN 40MG/0.4ML SYR SUBCUT SCH (08:57)
[2019-02-04] MEDS: QUETIAPINE FUMARATE 50MG TABLET PO SCH (11:50)
[2019-02-04] MEDS: LORAZEPAM 2MG/ML CPJ IV PRN ×2 (12:45→22:23)
[2019-02-04] MEDS: PHENYTOIN 100 MG/4 ML UDC NG SCH (21:11)
[2019-02-04] MEDS: HALOPERIDOL LACTATE 5MG/ML VIAL IM PRN (22:23)
[2019-02-05] VITALS (9 sets, daily range): BP systolic 104–128; BP diastolic 50–83
[2019-02-05] MEDS: IPRATROPIUM/ALBUTEROL 0.5-3(2.5)MG/3ML NEB HHN SCH ×6 (00:16→21:01)
[2019-02-05] MEDS: LEVETIRACETAM 500MG/5ML CUP PO SCH ×2 (08:46→21:04)
[2019-02-05] MEDS: POTASSIUM CHLORIDE 20MEQ/PACKET PO SCH (08:46)
[2019-02-05] MEDS: PANTOPRAZOLE SODIUM 40 MG/VIAL IV SCH (08:46)
[2019-02-05] MEDS: QUETIAPINE FUMARATE 50MG TABLET PO SCH (08:46)
[2019-02-05] MEDS: ENOXAPARIN 40MG/0.4ML SYR SUBCUT SCH (08:47)
[2019-02-05] MEDS: HALOPERIDOL LACTATE 5MG/ML VIAL IM PRN ×2 (12:36→21:05)
[2019-02-05] MEDS: PHENYTOIN 100 MG/4 ML UDC NG SCH (21:05)
[2019-02-06] VITALS (11 sets, daily range): BP systolic 100–135; BP diastolic 59–91
[2019-02-06] MEDS: IPRATROPIUM/ALBUTEROL 0.5-3(2.5)MG/3ML NEB HHN SCH ×6 (00:36→20:25)
[2019-02-06] MEDS: ENOXAPARIN 40MG/0.4ML SYR SUBCUT SCH (09:31)
[2019-02-06] MEDS: LEVETIRACETAM 500MG/5ML CUP PO SCH ×2 (09:31→21:54)
[2019-02-06] MEDS: PANTOPRAZOLE SODIUM 40 MG/VIAL IV SCH (09:31)
[2019-02-06] MEDS: POTASSIUM CHLORIDE 20MEQ/PACKET PO SCH (09:31)
[2019-02-06] MEDS: QUETIAPINE FUMARATE 50MG TABLET PO SCH (09:31)
[2019-02-06 12:46] LABS: BASOPHILS % 0.2 % (0.0-2.0); EOSINOPHILS % 1.5 % (0.0-5.0); HEMATOCRIT. 41.7 % (42.0-52.0); HEMOGLOBIN. 13.9 g/dL (14.0-18.0); MEAN CORPUSCULAR VOLUME 89.8 fL (80.0-94.0); MEAN PLATELET VOLUME 10.7 fl (7.4-10.4); MONOCYTES % 4.2 % (2.0-8.0); NEUTROPHILS % 86.1 % (40.0-76.0); PLATELET 261 x1000/uL (130-400); RED BLOOD CELL COUNT 4.64 mill/uL (4.7-6.1); RED CELL DISTRIBUTION WIDTH 13.4 % (11.6-14.6)
[2019-02-06 13:01] LABS: CHLORIDE 105 mEq/L (98-107)
[2019-02-06] MEDS: PHENYTOIN 100 MG/4 ML UDC NG SCH (21:54)
[2019-02-07] VITALS (9 sets, daily range): BP systolic 116–145; BP diastolic 63–84
[2019-02-07] MEDS: IPRATROPIUM/ALBUTEROL 0.5-3(2.5)MG/3ML NEB HHN SCH ×5 (00:20→21:18)
[2019-02-07 08:02] LABS: CHLORIDE 104 mEq/L (98-107)
[2019-02-07] MEDS: ENOXAPARIN 40MG/0.4ML SYR SUBCUT SCH (08:20)
[2019-02-07] MEDS: QUETIAPINE FUMARATE 50MG TABLET PO SCH (08:21)
[2019-02-07] MEDS: LEVETIRACETAM 500MG/5ML CUP PO SCH ×2 (08:21→20:33)
[2019-02-07] MEDS: PANTOPRAZOLE SODIUM 40 MG/VIAL IV SCH (08:21)
[2019-02-07] MEDS: POTASSIUM CHLORIDE 20MEQ/PACKET PO SCH (08:21)
[2019-02-07 08:30] LABS: HEMATOCRIT. 39.4 % (42.0-52.0); HEMOGLOBIN. 13.2 g/dL (14.0-18.0); MEAN CORPUSCULAR HEMOGLOBIN 30.1 pg (28.0-32.0); MEAN CORPUSCULAR VOLUME 89.7 fL (80.0-94.0); MEAN PLATELET VOLUME 10.9 fl (7.4-10.4); PLATELET 261 x1000/uL (130-400); RED BLOOD CELL COUNT 4.39 mill/uL (4.7-6.1); RED CELL DISTRIBUTION WIDTH 13.3 % (11.6-14.6)
[2019-02-07 19:53] LABS: PLATELET ESTIMATE NORMAL
[2019-02-07] MEDS: PHENYTOIN 100 MG/4 ML UDC NG SCH (20:32)
[2019-02-07] MEDS: HALOPERIDOL LACTATE 5MG/ML VIAL IM PRN (20:33)
[2019-02-08] VITALS (8 sets, daily range): BP systolic 104–129; BP diastolic 67–100
[2019-02-08] MEDS: IPRATROPIUM/ALBUTEROL 0.5-3(2.5)MG/3ML NEB HHN SCH ×4 (00:51→11:43)
[2019-02-08] MEDS: PANTOPRAZOLE SODIUM 40 MG/VIAL IV SCH (08:53)
[2019-02-08] MEDS: QUETIAPINE FUMARATE 50MG TABLET PO SCH (08:53)
[2019-02-08] MEDS: ENOXAPARIN 40MG/0.4ML SYR SUBCUT SCH (08:53)
[2019-02-08] MEDS: POTASSIUM CHLORIDE 20MEQ/PACKET PO SCH (08:53)
[2019-02-08] MEDS: LEVETIRACETAM 500MG/5ML CUP PO SCH (10:23)
== END 2019-02-08 17:16 | DRG 720 ==
LOC: ER 18:22 → EDBEDREQSVC 20:13 → EDBEDREQ 20:13 → EDBEDREQTM 20:13 → CVICU 20:16 → ENRESERV 01-20 18:38 → 5EST 02-03 17:53
PROVIDERS: ADMIT Internal Medicine; ATTEND Internal Medicine
PROC: 5A1955Z Respiratory Ventilation, Greater than 96 Consecutive Hours (ICD-10-PCS; 2019-01-19)
PROC: 0BH17EZ Insertion of Endotracheal Airway into Trachea, Via Natural or Artificial Opening (ICD-10-PCS; 2019-01-19)
PROC: 02HV33Z Insertion of Infusion Device into Superior Vena Cava, Percutaneous Approach (ICD-10-PCS; principal; 2019-01-21)
PROC: B548ZZA Ultrasonography of Superior Vena Cava, Guidance (ICD-10-PCS; 2019-01-21)
PROC: 0DH63UZ Insertion of Feeding Device into Stomach, Percutaneous Approach (ICD-10-PCS; 2019-02-03)
DX: A41.9 Sepsis, unspecified organism (principal); J96.00 Acute respiratory failure, unspecified whether with hypoxia or hypercapnia; J69.0 Pneumonitis due to inhalation of food and vomit; I62.00 Nontraumatic subdural hemorrhage, unspecified; G93.40 Encephalopathy, unspecified; E87.2 Acidosis; E46 Unspecified protein-calorie malnutrition; R13.12 Dysphagia, oropharyngeal phase; F03.90 Unspecified dementia, unspecified severity, without behavioral disturbance, psychotic disturbance, mood disturbance, and anxiety; F20.9 Schizophrenia, unspecified; D64.9 Anemia, unspecified; E87.6 Hypokalemia; G40.901 Epilepsy, unspecified, not intractable, with status epilepticus; I67.82 Cerebral ischemia; J20.9 Acute bronchitis, unspecified; R73.9 Hyperglycemia, unspecified; Z78.1 Physical restraint status; Z86.73 Personal history of transient ischemic attack (TIA), and cerebral infarction without residual deficits; Z79.899 Other long term (current) drug therapy; Z68.31 Body mass index [BMI] 31.0-31.9, adult
CPT/HCPCS: 36415; 36600; 71045; 76937; 80048; 80053; 80185; 80202; 80320; 81003; 82140; 82375; 82542; 82550; 82553; 82607; 82746; 82805; 82962; 83036; 83605; 83735; 83880; 84100; 84145; 84439; 84443; 84478; 84481; 84484; 85025; 85027; 85651; 87070; 87804; 93005; 93970; 94002; 94003; 94640; 99291; C1725; C9113; J0690; J0696; J1165; J1630; J1650; J1953; J2060; J2250; J2270; J2405; J2543; J2704; J2930; J3010; J3370; J3475; J3480; J3490; J7050; J7060; J7620; A4315; G0480

== ENCOUNTER 2021-07-31 18:24 | Inpatient (IN) | payer MEDICAID ==
[~2021-07-31] VITALS: Ht 177.8 cm; Wt 80.7 kg
[~2021-07-31 18:24] MED LIST changes: +DONE10TA43 PO; +LACT10SO7 PO; +LEVE10006 PO; +MEMA10TA55 PO; +OLAN10TA72 PO; +PHEN100C12 PO
[2021-07-31] MEDS ORDERED: ACETAMINOPHEN 325MG TABLET PO STA (18:47)
[2021-07-31] MEDS ORDERED: NOREPINEPHRINE 8MG/250ML PMX 250 ML IV ONE (19:00)
[2021-07-31] MEDS ORDERED: SODIUM CHLORIDE 0.9% 1,000 ML IV ONE (19:00)
[2021-07-31] MEDS ORDERED: PIPERACILLIN/TAZ 3.375G PREMIX 50 ML IV ONE (19:00)
[2021-07-31] MEDS ORDERED: SODIUM CHLORIDE 0.9% 1000ML BAG (SEPSIS BOLUS) IV ONE (19:00)
[2021-07-31 19:20] LABS: BG BASE EXCESS 1.5 mmol/L (-2.0-2.0); BG CARBOXYHEMOGLOBIN 0.4 % (0.5-1.5); BG DEOXYHEMOGLOBIN 0.6 % (0.0-5.0); BG FRACTION INSPIRED OXYGEN 100; BG METHEMOGLOBIN 0.4 % (0.0-1.5); BG OXYGEN SATURATION 99.4 % (92.0-98.5); BG OXYHEMOGLOBIN 98.6 % (94.0-97.0); BG PCO2 40.8 mmHg (35.0-45.0); BG PH 7.423 (7.350-7.450); BG PO2 248.8 mmHg (75.0-100.0); BG SAMPLE SITE RIGHT RADIAL; BG TOTAL HEMOGLOBIN 13.9 g/dL (12.0-18.0); BG VENT MODE MASK - NRB
[2021-07-31 19:31] LABS: HEMATOCRIT. 41.1 % (42.0-52.0); HEMOGLOBIN. 13.4 g/dL (14.0-18.0); MEAN CORPUSCULAR HEMOGLOBIN 29.1 pg (28.0-32.0); MEAN PLATELET VOLUME 10.9 fl (7.4-10.4); PLATELET 166 x1000/uL (130-400); RED BLOOD CELL COUNT 4.62 mill/uL (4.7-6.1); RED CELL DISTRIBUTION WIDTH 12.6 % (11.6-14.6)
[2021-07-31 19:40] LABS: CHLORIDE 106 mEq/L (98-107)
[2021-07-31 19:50] LABS: ETHANOL BLOOD < 10 mg/dL
[2021-07-31 21:36] LABS: PLATELET ESTIMATE NORMAL
[2021-08-01] VITALS (8 sets, daily range): BP systolic 108–134; BP diastolic 58–80
[2021-08-01] MEDS ORDERED: DOCUSATE SODIUM 100MG CAPSULE PO PRN (02:00)
[2021-08-01] MEDS ORDERED: GUAIFENESIN 200MG/10ML SUGAR FREE UDC PO PRN (02:00)
[2021-08-01] MEDS ORDERED: ONDANSETRON HCL 4MG/2ML INJ IV PRN (02:00)
[2021-08-01] MEDS ORDERED: IPRATROPIUM/ALBUTEROL 0.5-3(2.5)MG/3ML NEB HHN PRN (02:00)
[2021-08-01] MEDS ORDERED: DEXTROSE 50% WATER 50ML SYRINGE IV PRN (02:15)
[2021-08-01] MEDS: ACETAMINOPHEN 325MG TABLET PO PRN ×2 (04:50→21:08)
[2021-08-01] MEDS ORDERED: PIPERACILLIN/TAZOBACTAM 3.375 G in DEXTROSE 5% WATER 50 ML IV SCH (05:00)
[2021-08-01] MEDS ORDERED: LEVETIRACETAM 1,500 MG in SODIUM CHLORIDE 0.9% 100 ML IV SCH (05:00)
[2021-08-01] MEDS ORDERED: BLOOD SUGAR DIAGNOSTIC STRIP TEST SCH (06:00)
[2021-08-01] MEDS ORDERED: INSULIN LISPRO 100 UNITS/ML SUBCUT SCH (07:00)
[2021-08-01 07:16] LABS: BASOPHILS % 0.2 % (0.0-2.0); EOSINOPHILS % 0.1 % (0.0-5.0); HEMATOCRIT. 40.1 % (42.0-52.0); HEMOGLOBIN. 13.2 g/dL (14.0-18.0); LYMPHOCYTES % 8.5 % (20.0-50.0); MEAN CORPUSCULAR HEMOGLOBIN 29.3 pg (28.0-32.0); MEAN CORPUSCULAR VOLUME 88.8 fL (80.0-94.0); MEAN PLATELET VOLUME 10.8 fl (7.4-10.4); MONOCYTES % 5.8 % (2.0-8.0); NEUTROPHILS % 85.4 % (40.0-76.0); PLATELET 168 x1000/uL (130-400); RED BLOOD CELL COUNT 4.52 mill/uL (4.7-6.1); RED CELL DISTRIBUTION WIDTH 12.8 % (11.6-14.6)
[2021-08-01 07:24] LABS: CHLORIDE 109 mEq/L (98-107)
[2021-08-01] MEDS: ENOXAPARIN 40MG/0.4ML SYR SUBCUT SCH (13:32)
[2021-08-01] MEDS: IPRATROPIUM/ALBUTEROL 0.5-3(2.5)MG/3ML NEB HHN SCH ×2 (14:24→21:00)
[2021-08-01] MEDS: ACETYLCYSTEINE 100MG/ML 10% VIAL 4ML INH SCH (16:41)
[2021-08-01] MEDS: PIPERACILLIN/TAZOBACTAM 3.375 G in DEXTROSE 5% WATER 50 ML IV SCH (18:09)
[2021-08-01] MEDS: LEVETIRACETAM 1,500 MG in SODIUM CHLORIDE 0.9% 100 ML IV SCH (21:08)
[2021-08-02] VITALS (10 sets, daily range): BP systolic 101–149; BP diastolic 59–89
[2021-08-02] MEDS: PIPERACILLIN/TAZOBACTAM 3.375 G in DEXTROSE 5% WATER 50 ML IV SCH ×3 (01:07→14:19)
[2021-08-02] MEDS: IPRATROPIUM/ALBUTEROL 0.5-3(2.5)MG/3ML NEB HHN SCH ×4 (02:36→21:23)
[2021-08-02 08:11] LABS: HEMATOCRIT. 40.4 % (42.0-52.0); HEMOGLOBIN. 13.4 g/dL (14.0-18.0); MEAN CORPUSCULAR HEMOGLOBIN 29.6 pg (28.0-32.0); MEAN CORPUSCULAR VOLUME 88.8 fL (80.0-94.0); MEAN PLATELET VOLUME 11.4 fl (7.4-10.4); PLATELET 149 x1000/uL (130-400); RED BLOOD CELL COUNT 4.55 mill/uL (4.7-6.1); RED CELL DISTRIBUTION WIDTH 12.8 % (11.6-14.6)
[2021-08-02] MEDS: METOPROLOL SUCCINATE 50MG ER TABLET PO SCH (08:29)
[2021-08-02] MEDS: ACETYLCYSTEINE 100MG/ML 10% VIAL 4ML INH SCH ×2 (08:29→21:23)
[2021-08-02] MEDS: ENOXAPARIN 40MG/0.4ML SYR SUBCUT SCH (08:38)
[2021-08-02 08:39] LABS: CHLORIDE 106 mEq/L (98-107)
[2021-08-02] MEDS: LEVETIRACETAM 1,500 MG in SODIUM CHLORIDE 0.9% 100 ML IV SCH (09:31)
[2021-08-02 10:25] LABS: PLATELET ESTIMATE NORMAL
[2021-08-02] MEDS ORDERED: VANCOMYCIN 1500MG in DEXTROSE 5% WATER 250ML IV NR (21:00)
[2021-08-02] MEDS: ATORVASTATIN CALCIUM 20MG TABLET PO SCH (21:37)
[2021-08-03] VITALS: BP 125/70
[2021-08-03] MEDS: PIPERACILLIN/TAZOBACTAM 3.375 G in DEXTROSE 5% WATER 50 ML IV SCH ×4 (00:59→22:33)
[2021-08-03] MEDS: LEVETIRACETAM 1,500 MG in SODIUM CHLORIDE 0.9% 100 ML IV SCH ×3 (01:00→22:28)
[2021-08-03] MEDS: IPRATROPIUM/ALBUTEROL 0.5-3(2.5)MG/3ML NEB HHN SCH ×4 (02:45→21:16)
[2021-08-03 04:00] VITALS: BP 120/66
[2021-08-03] MEDS: VANCOMYCIN 1.25GM PMX (XELLIA) 250 ML IV SCH ×2 (06:07→18:13)
[2021-08-03 08:19] LABS: BASOPHILS % 0.2 % (0.0-2.0); EOSINOPHILS % 1.1 % (0.0-5.0); HEMATOCRIT. 37.9 % (42.0-52.0); HEMOGLOBIN. 12.8 g/dL (14.0-18.0); LYMPHOCYTES % 8.7 % (20.0-50.0); MEAN CORPUSCULAR HEMOGLOBIN 30.1 pg (28.0-32.0); MEAN CORPUSCULAR VOLUME 89.1 fL (80.0-94.0); MEAN PLATELET VOLUME 10.7 fl (7.4-10.4); MONOCYTES % 8.3 % (2.0-8.0); NEUTROPHILS % 81.7 % (40.0-76.0); PLATELET 142 x1000/uL (130-400); RED BLOOD CELL COUNT 4.25 mill/uL (4.7-6.1); RED CELL DISTRIBUTION WIDTH 12.4 % (11.6-14.6)
[2021-08-03 08:30] VITALS: BP 140/77
[2021-08-03 08:35] LABS: CHLORIDE 107 mEq/L (98-107)
[2021-08-03] MEDS: ACETYLCYSTEINE 100MG/ML 10% VIAL 4ML INH SCH ×2 (08:48→14:22)
[2021-08-03] MEDS: METOPROLOL SUCCINATE 50MG ER TABLET PO SCH (09:41)
[2021-08-03] MEDS: ENOXAPARIN 40MG/0.4ML SYR SUBCUT SCH (09:42)
[2021-08-03 12:00] VITALS: BP 140/77
[2021-08-03 16:00] VITALS: BP 110/54
[2021-08-03 17:25] LABS: CLARITY URINE CLEAR (CLEAR); COLOR URINE YELLOW (YELLOW); KETONES URINE 1+ (NEGATIVE); LEUKOCYTE ESTERASE URINE NEGATIVE (NEGATIVE); NITRITE URINE NEGATIVE (NEGATIVE); OCCULT BLOOD URINE NEGATIVE (NEGATIVE); PROTEIN URINE TRACE (NEGATIVE); SPECIFIC GRAVITY URINE 1.014 (1.005-1.030)
[2021-08-03 18:35] LABS: TOTAL IRON BINDING CAPACITY 131 ug/dL (250-450)
[2021-08-03 20:00] VITALS: BP 121/57
[2021-08-03] MEDS: ACETAMINOPHEN 325MG TABLET PO PRN (20:57)
[2021-08-03] MEDS: ATORVASTATIN CALCIUM 20MG TABLET PO SCH (20:57)
[2021-08-03] MEDS: IRON SUCROSE COMPLEX 100 MG/5 ML ML IV SCH (21:15)
[2021-08-04] VITALS: BP 102/60
[2021-08-04] MEDS: IPRATROPIUM/ALBUTEROL 0.5-3(2.5)MG/3ML NEB HHN SCH ×4 (01:20→22:43)
[2021-08-04 04:00] VITALS: BP 134/71
[2021-08-04 04:48] LABS: CHLORIDE 108 mEq/L (98-107)
[2021-08-04] MEDS: VANCOMYCIN 1.25GM PMX (XELLIA) 250 ML IV SCH ×2 (05:14→18:43)
[2021-08-04] MEDS: PIPERACILLIN/TAZOBACTAM 3.375 G in DEXTROSE 5% WATER 50 ML IV SCH ×3 (06:29→22:21)
[2021-08-04 08:00] VITALS: BP 137/66
[2021-08-04] MEDS: ACETYLCYSTEINE 100MG/ML 10% VIAL 4ML INH SCH (08:40)
[2021-08-04] MEDS: PANTOPRAZOLE SODIUM 40 MG/VIAL IV SCH (10:02)
[2021-08-04] MEDS: METOPROLOL SUCCINATE 50MG ER TABLET PO SCH (10:02)
[2021-08-04] MEDS: LEVETIRACETAM 1,500 MG in SODIUM CHLORIDE 0.9% 100 ML IV SCH ×2 (10:02→21:49)
[2021-08-04] MEDS: ENOXAPARIN 40MG/0.4ML SYR SUBCUT SCH (10:03)
[2021-08-04 12:00] VITALS: BP 119/89
[2021-08-04 16:00] VITALS: BP 110/57
[2021-08-04 20:20] VITALS: BP 135/72
[2021-08-04] MEDS: IRON SUCROSE COMPLEX 100 MG/5 ML ML IV SCH (20:44)
[2021-08-04] MEDS: ATORVASTATIN CALCIUM 20MG TABLET PO SCH (20:44)
[2021-08-05 00:22] VITALS: BP 107/68
[2021-08-05] MEDS: IPRATROPIUM/ALBUTEROL 0.5-3(2.5)MG/3ML NEB HHN SCH ×3 (02:15→14:46)
[2021-08-05 04:00] VITALS: BP 103/59
[2021-08-05] MEDS: VANCOMYCIN 1.25GM PMX (XELLIA) 250 ML IV SCH (05:34)
[2021-08-05 07:03] LABS: BASOPHILS % 0.6 % (0.0-2.0); EOSINOPHILS % 2.3 % (0.0-5.0); HEMATOCRIT. 37.5 % (42.0-52.0); HEMOGLOBIN. 12.7 g/dL (14.0-18.0); LYMPHOCYTES % 12.3 % (20.0-50.0); MEAN CORPUSCULAR HEMOGLOBIN 29.6 pg (28.0-32.0); MEAN CORPUSCULAR VOLUME 87.6 fL (80.0-94.0); MEAN PLATELET VOLUME 10.8 fl (7.4-10.4); MONOCYTES % 9.2 % (2.0-8.0); NEUTROPHILS % 75.6 % (40.0-76.0); PLATELET 216 x1000/uL (130-400); RED BLOOD CELL COUNT 4.28 mill/uL (4.7-6.1); RED CELL DISTRIBUTION WIDTH 12.6 % (11.6-14.6)
[2021-08-05] MEDS: PIPERACILLIN/TAZOBACTAM 3.375 G in DEXTROSE 5% WATER 50 ML IV SCH ×2 (07:16→13:51)
[2021-08-05] MEDS: ACETYLCYSTEINE 100MG/ML 10% VIAL 4ML INH SCH ×2 (07:38→14:41)
[2021-08-05 07:40] LABS: CHLORIDE 109 mEq/L (98-107)
[2021-08-05 08:00] VITALS: BP 138/79
[2021-08-05] MEDS: METOPROLOL SUCCINATE 50MG ER TABLET PO SCH (09:17)
[2021-08-05] MEDS: PANTOPRAZOLE SODIUM 40 MG/VIAL IV SCH (09:17)
[2021-08-05] MEDS: ENOXAPARIN 40MG/0.4ML SYR SUBCUT SCH (09:17)
[2021-08-05] MEDS: LEVETIRACETAM 1,500 MG in SODIUM CHLORIDE 0.9% 100 ML IV SCH (09:18)
[2021-08-05] MEDS ORDERED: POTASSIUM CHLORIDE 20MEQ TABLET SR PO SCH (10:15)
[2021-08-05 12:00] VITALS: BP 139/89
[2021-08-05 15:45] VITALS: BP 101/64
[2021-08-06] MEDS ORDERED: FAMOTIDINE 20MG TABLET PO SCH (09:00)
== END 2021-08-05 17:05 | DRG 720 ==
LOC: ER 18:24 → MICUSO 21:48 → EDBEDREQ 22:36 → EDBEDREQTM 22:36 → 5EST 08-01 12:23 → 7WST 08-02 16:33
PROVIDERS: ADMIT Internal Medicine; ATTEND Internal Medicine
PROC: 02HV33Z Insertion of Infusion Device into Superior Vena Cava, Percutaneous Approach (ICD-10-PCS; principal; 2021-07-31)
PROC: B548ZZA Ultrasonography of Superior Vena Cava, Guidance (ICD-10-PCS; 2021-07-31)
DX: A41.9 Sepsis, unspecified organism (principal); J96.01 Acute respiratory failure with hypoxia; R65.21 Severe sepsis with septic shock; G93.41 Metabolic encephalopathy; E44.0 Moderate protein-calorie malnutrition; J18.9 Pneumonia, unspecified organism; K94.22 Gastrostomy infection; F03.90 Unspecified dementia, unspecified severity, without behavioral disturbance, psychotic disturbance, mood disturbance, and anxiety; F20.9 Schizophrenia, unspecified; F31.9 Bipolar disorder, unspecified; I95.9 Hypotension, unspecified; N18.9 Chronic kidney disease, unspecified; R13.12 Dysphagia, oropharyngeal phase; I12.9 Hypertensive chronic kidney disease with stage 1 through stage 4 chronic kidney disease, or unspecified chronic kidney disease; G40.909 Epilepsy, unspecified, not intractable, without status epilepticus; J44.9 Chronic obstructive pulmonary disease, unspecified; N20.0 Calculus of kidney; N21.0 Calculus in bladder; R13.10 Dysphagia, unspecified; Z86.73 Personal history of transient ischemic attack (TIA), and cerebral infarction without residual deficits
CPT/HCPCS: 36415; 36600; 71045; 74176; 76700; 80048; 80053; 80202; 80320; 81003; 82375; 82607; 82728; 82746; 82805; 82962; 83036; 83540; 83550; 83605; 83880; 84145; 84484; 85025; 93005; 94640; 99285; C9113; J1650; J1953; J2543; J3370; J3490; J7030; J7050; J7060; J7608; G0480

== ENCOUNTER 2022-01-16 20:38 | Inpatient (IN) | payer MEDICAID ==
[~2022-01-16] VITALS: Ht 175.3 cm; Wt 68.9 kg
[2022-01-16] MEDS ORDERED: SODIUM CHLORIDE 0.9% 1,000 ML IV ONE (23:00)
[2022-01-16 23:43] LABS: HEMATOCRIT 45.1 % (42.0-52.0); HEMOGLOBIN 15.2 g/dL (14.0-18.0); MEAN CORPUSCULAR HEMOGLOBIN 31.5 pg (28.0-32.0); MEAN CORPUSCULAR VOLUME 93.5 fL (80.0-94.0); PLATELET 217 x1000/uL (130-400); RED BLOOD CELL COUNT 4.82 mill/uL (4.7-6.1); RED CELL DISTRIBUTION WIDTH 12.4 % (11.6-14.6)
[2022-01-16 23:57] LABS: CHLORIDE 107 mEq/L (98-107)
[2022-01-17] MEDS ORDERED: ACETAMINOPHEN 325MG TABLET PO PRN (15:00)
[2022-01-17] MEDS ORDERED: DEXT 5%/0.9% NACL 1,000 ML IV SCH (15:00)
[2022-01-17] MEDS ORDERED: ONDANSETRON HCL 4MG/2ML INJ IV PRN (15:00)
[2022-01-17] MEDS ORDERED: IPRATROPIUM/ALBUTEROL 0.5-3(2.5)MG/3ML NEB HHN PRN (15:00)
[2022-01-17] MEDS ORDERED: CLONIDINE 0.1MG TABLET PO PRN (15:00)
[2022-01-17 16:00] VITALS: BP 111/79
[2022-01-17 20:00] VITALS: BP 119/70
[2022-01-17] MEDS: LORAZEPAM 2MG/ML CPJ IV PRN (22:03)
[2022-01-18] VITALS: BP 118/74
[2022-01-18 04:00] VITALS: BP 110/67
[2022-01-18] MEDS: LORAZEPAM 2MG/ML CPJ IV PRN (06:24)
[2022-01-18 09:27] LABS: BASOPHILS % 0.2 % (0.0-2.0); EOSINOPHILS % 0.2 % (0.0-5.0); HEMATOCRIT. 39.7 % (42.0-52.0); HEMOGLOBIN. 13.5 g/dL (14.0-18.0); LYMPHOCYTES % 7.5 % (20.0-50.0); MEAN CORPUSCULAR HEMOGLOBIN 31.1 pg (28.0-32.0); MEAN CORPUSCULAR VOLUME 91.8 fL (80.0-94.0); MEAN PLATELET VOLUME 12.2 fl (7.4-10.4); MONOCYTES % 5.5 % (2.0-8.0); NEUTROPHILS % 86.6 % (40.0-76.0); PLATELET 210 x1000/uL (130-400); RED BLOOD CELL COUNT 4.32 mill/uL (4.7-6.1); RED CELL DISTRIBUTION WIDTH 12.4 % (11.6-14.6)
[2022-01-18 09:47] LABS: CHLORIDE 107 mEq/L (98-107)
[2022-01-18 12:16] VITALS: BP 153/77
[2022-01-18] MEDS ORDERED: CEFTRIAXONE 1 G PREMIX 50 ML IV SCH (12:30)
[2022-01-18] MEDS: METRONIDAZOLE 500 MG PREMIX 100 ML IV SCH ×2 (16:11→21:03)
[2022-01-18] MEDS: CEFTRIAXONE 1,000 MG in DEXTROSE 5% WATER 50 ML IV SCH (16:11)
[2022-01-18 16:15] VITALS: BP 130/77
[2022-01-18] MEDS ORDERED: PHENYTOIN 100 MG/4 ML UDC NG NR (16:45)
[2022-01-18] MEDS ORDERED: PHENYTOIN SODIUM EXTENDED 100MG CAPSULE PO SCH (17:00)
[2022-01-18 19:39] LABS: CLARITY URINE TURBID (CLEAR); COLOR URINE DARK YELLOW (YELLOW); KETONES URINE TRACE (NEGATIVE); LEUKOCYTE ESTERASE URINE NEGATIVE (NEGATIVE); NITRITE URINE NEGATIVE (NEGATIVE); OCCULT BLOOD URINE NEGATIVE (NEGATIVE); PH URINE 5.5 (4.5-8.0); PROTEIN URINE 2+ (NEGATIVE); SPECIFIC GRAVITY URINE 1.018 (1.005-1.030)
[2022-01-18] MEDS: LEVETIRACETAM 500MG TABLET PO SCH (21:03)
[2022-01-18] MEDS: ACETAMINOPHEN 325MG TABLET PO PRN (21:14)
[2022-01-19] VITALS: BP 111/66
[2022-01-19 04:00] VITALS: BP 95/69
[2022-01-19] MEDS: METRONIDAZOLE 500 MG PREMIX 100 ML IV SCH (05:30)
[2022-01-19 08:00] VITALS: BP 100/64
[2022-01-19 08:23] LABS: BASOPHILS % 0.3 % (0.0-2.0); EOSINOPHILS % 0.3 % (0.0-5.0); HEMATOCRIT. 38.2 % (42.0-52.0); HEMOGLOBIN. 12.8 g/dL (14.0-18.0); LYMPHOCYTES % 8.4 % (20.0-50.0); MEAN CORPUSCULAR VOLUME 92.5 fL (80.0-94.0); MEAN PLATELET VOLUME 12.1 fl (7.4-10.4); MONOCYTES % 4.4 % (2.0-8.0); NEUTROPHILS % 86.6 % (40.0-76.0); PLATELET 203 x1000/uL (130-400); RED BLOOD CELL COUNT 4.13 mill/uL (4.7-6.1); RED CELL DISTRIBUTION WIDTH 12.6 % (11.6-14.6)
[2022-01-19 08:47] LABS: CHLORIDE 108 mEq/L (98-107)
[2022-01-19] MEDS: PHENYTOIN 100 MG/4 ML UDC PO SCH ×2 (09:09→13:00)
[2022-01-19] MEDS: LEVETIRACETAM 500MG TABLET PO SCH (09:10)
[2022-01-19] MEDS: ACETAMINOPHEN 325MG TABLET PO PRN (10:48)
[2022-01-19 12:00] VITALS: BP 110/66
[2022-01-19] MEDS ORDERED: LACTULOSE 20G/30ML UDC PO SCH (12:00)
[2022-01-19] MEDS: CEFTRIAXONE 1,000 MG in DEXTROSE 5% WATER 50 ML IV SCH (13:48)
[2022-01-19 16:00] VITALS: BP 103/63
[2022-01-19 17:20] VITALS: BP 103/63
== END 2022-01-19 17:12 | DRG 252 ==
LOC: ER 21:12 → MICUSO 01-17 00:58 → EDBEDREQTM 01-17 01:14 → EDBEDREQ 01-17 01:14 → 6EST 01-17 14:12
PROVIDERS: ADMIT Internal Medicine; ATTEND Internal Medicine
DX: K94.23 Gastrostomy malfunction (principal); R65.11 Systemic inflammatory response syndrome (SIRS) of non-infectious origin with acute organ dysfunction; J96.01 Acute respiratory failure with hypoxia; E44.0 Moderate protein-calorie malnutrition; G40.909 Epilepsy, unspecified, not intractable, without status epilepticus; F03.93 Unspecified dementia, unspecified severity, with mood disturbance; Z20.822 Contact with and (suspected) exposure to COVID-19; F20.9 Schizophrenia, unspecified; F31.9 Bipolar disorder, unspecified; D72.829 Elevated white blood cell count, unspecified; I10 Essential (primary) hypertension; R13.12 Dysphagia, oropharyngeal phase; K59.00 Constipation, unspecified; Z79.899 Other long term (current) drug therapy; Z86.73 Personal history of transient ischemic attack (TIA), and cerebral infarction without residual deficits; Z68.22 Body mass index [BMI] 22.0-22.9, adult; Y83.8 Other surgical procedures as the cause of abnormal reaction of the patient, or of later complication, without mention of misadventure at the time of the procedure
CPT/HCPCS: 36415; 71045; 74018; 80048; 80053; 80185; 81003; 82542; 82962; 84484; 85025; 85027; 87426; 93005; 99285; J0696; J2060; J3490; J7030; J7042; J7060

== ENCOUNTER 2022-07-02 12:02 | Inpatient (IN) | payer MEDICAID ==
[~2022-07-02] VITALS: Ht 175.3 cm; Wt 75.4 kg
[2022-07-02] MEDS ORDERED: LEVETIRACETAM 500MG PREMIX 100 ML IV ONE (12:15)
[2022-07-02] MEDS ORDERED: SODIUM CHLORIDE 0.9% 1000ML BAG (SEPSIS BOLUS) IV ONE (12:15)
[2022-07-02] MEDS ORDERED: MIDAZOLAM HCL 2 MG/2 ML VIAL IV NR (12:30)
[2022-07-02] MEDS ORDERED: MIDAZOLAM HCL 2 MG/2 ML VIAL IV ONE (12:30)
[2022-07-02 12:44] LABS: BG BASE EXCESS 2.2 mmol/L (-2.0-2.0); BG CARBOXYHEMOGLOBIN 0.1 % (0.5-1.5); BG DEOXYHEMOGLOBIN 1.4 % (0.0-5.0); BG FRACTION INSPIRED OXYGEN 100; BG HCO3 ACT 26.4 mmol/L (22.0-26.0); BG METHEMOGLOBIN 0.3 % (0.0-1.5); BG OXYGEN SATURATION 98.6 % (92.0-98.5); BG OXYHEMOGLOBIN 98.2 % (94.0-97.0); BG PCO2 39.6 mmHg (35.0-45.0); BG PH 7.442 (7.350-7.450); BG PO2 136.6 mmHg (75.0-100.0); BG SAMPLE SITE RIGHT RADIAL; BG TOTAL HEMOGLOBIN 15.3 g/dL (12.0-18.0); BG VENT MODE MASK - NRB
[2022-07-02 13:14] LABS: HEMATOCRIT. 41.2 % (42.0-52.0); HEMOGLOBIN. 13.7 g/dL (14.0-18.0); MEAN CORPUSCULAR HEMOGLOBIN 31.1 pg (28.0-32.0); MEAN CORPUSCULAR VOLUME 93.3 fL (80.0-94.0); MEAN PLATELET VOLUME 12.8 fl (7.4-10.4); PLATELET 133 x1000/uL (130-400); RED BLOOD CELL COUNT 4.41 mill/uL (4.7-6.1); RED CELL DISTRIBUTION WIDTH 13.1 % (11.6-14.6)
[2022-07-02] MEDS ORDERED: VANCOMYCIN 1G PREMIX 200 ML IV ONE (13:15)
[2022-07-02] MEDS ORDERED: PIPERACILLIN/TAZ 3.375G PREMIX 50 ML IV ONE (13:15)
[2022-07-02 13:33] LABS: PLATELET ESTIMATE NORMAL
[2022-07-02] MEDS ORDERED: LORAZEPAM 2MG/ML CPJ IV ONE ×2 (14:00→14:15)
[2022-07-02 14:19] LABS: CHLORIDE 111 mEq/L (98-107)
[2022-07-02] MEDS ORDERED: MIDAZOLAM 100MG/100ML PMX 100 ML IV PRN (14:45)
[2022-07-02] MEDS ORDERED: FENTANYL 2500MCG/250ML PMX 250 ML IV ONE (14:45)
[2022-07-02] MEDS ORDERED: MIDAZOLAM HCL 100 MG in SODIUM CHLORIDE 0.9% 100 ML IV PRN (15:15)
[2022-07-02] MEDS ORDERED: FENTANYL CITRATE 2,500 MCG in SODIUM CHLORIDE 0.9% 200 ML IV PRN (15:15)
[2022-07-02 15:23] LABS: BG CARBOXYHEMOGLOBIN 0.2 % (0.5-1.5); BG DEOXYHEMOGLOBIN 0.2 % (0.0-5.0); BG FRACTION INSPIRED OXYGEN 100; BG HCO3 ACT 25.3 mmol/L (22.0-26.0); BG METHEMOGLOBIN 0.4 % (0.0-1.5); BG OXYGEN SATURATION 99.8 % (92.0-98.5); BG OXYHEMOGLOBIN 99.2 % (94.0-97.0); BG PCO2 43.2 mmHg (35.0-45.0); BG PH 7.385 (7.350-7.450); BG PO2 348.8 mmHg (75.0-100.0); BG SAMPLE SITE RIGHT RADIAL; BG TOTAL HEMOGLOBIN 14.6 g/dL (12.0-18.0); BG VENT MODE VENT - AC
[2022-07-02 15:26] LABS: INR 1.1; PARTIAL THROMBOPLASTIN TIME 35.1 sec (23.4-31.0); PROTHROMBIN TIME 11.4 sec (9.6-11.0)
[2022-07-02 15:26] LABS: CLARITY URINE CLEAR (CLEAR); COLOR URINE DARK YELLOW (YELLOW); KETONES URINE TRACE (NEGATIVE); LEUKOCYTE ESTERASE URINE TRACE (NEGATIVE); NITRITE URINE NEGATIVE (NEGATIVE); OCCULT BLOOD URINE NEGATIVE (NEGATIVE); PH URINE 6.5 (4.5-8.0); PROTEIN URINE 2+ (NEGATIVE); SPECIFIC GRAVITY URINE 1.033 (1.005-1.030)
[2022-07-02] MEDS ORDERED: PHENYTOIN SODIUM 1,000 MG in SODIUM CHLORIDE 0.9% 100 ML IV ONE (15:30)
[2022-07-02] MEDS: LORAZEPAM 2MG/ML CPJ IV PRN ×3 (15:44→23:01)
[2022-07-02] MEDS ORDERED: PROPOFOL 10MG/ML 100ML 100 ML IV PRN (16:45)
[2022-07-02] MEDS ORDERED: ACETAMINOPHEN 325MG TABLET PO PRN (16:45)
[2022-07-02] MEDS ORDERED: GUAIFENESIN 200MG/10ML SUGAR FREE UDC PO PRN (16:45)
[2022-07-02] MEDS ORDERED: MAGNESIUM/ALUMINUM HYDROXIDE/SIMETHICONE 30ML UDC PO PRN (16:45)
[2022-07-02] MEDS ORDERED: CLONIDINE 0.1MG TABLET PO PRN (16:45)
[2022-07-02] MEDS ORDERED: ONDANSETRON HCL 4MG/2ML INJ IV PRN (16:45)
[2022-07-02] MEDS ORDERED: IPRATROPIUM/ALBUTEROL 0.5-3(2.5)MG/3ML NEB HHN PRN (16:45)
[2022-07-02] MEDS ORDERED: DOCUSATE SODIUM 100MG CAPSULE PO PRN (16:45)
[2022-07-02] MEDS ORDERED: MORPHINE SULFATE 2 MG/ML CPJ (NOT FOR IM USE) IV PRN (16:45)
[2022-07-02] MEDS ORDERED: ENOXAPARIN 40MG/0.4ML SYR SUBCUT SCH (17:00)
[2022-07-02] MEDS ORDERED: NALOXONE HCL 0.4MG/ML VIAL IV PRN (17:00)
[2022-07-02] MEDS ORDERED: IPRATROPIUM BROMIDE (0.02%) 0.5MG/2.5ML NEB HHN SCH (17:00)
[2022-07-02] MEDS ORDERED: SODIUM CHLORIDE 0.9% 1,000 ML IV ONE (17:30)
[2022-07-02] MEDS ORDERED: PHENYTOIN SODIUM 100MG/2ML VIAL IV SCH (22:00)
[2022-07-02] MEDS ORDERED: PIPERACILLIN/TAZOBACTAM 3.375 G in DEXTROSE 5% WATER 50 ML IV SCH (22:00)
[2022-07-02] MEDS: IPRATROPIUM/ALBUTEROL 0.5-3(2.5)MG/3ML NEB HHN SCH (22:47)
[2022-07-02] MEDS: VANCOMYCIN 750MG PREMIX 150 ML IV SCH (22:50)
[2022-07-02] MEDS: PHENYTOIN 100 MG/4 ML UDC NG SCH (22:50)
[2022-07-02] MEDS ORDERED: LEVETIRACETAM 1000MG PREMIX 100 ML IV SCH (23:00)
[2022-07-03] VITALS (53 sets, daily range): BP systolic 90–124; BP diastolic 58–83
[2022-07-03] MEDS: IPRATROPIUM/ALBUTEROL 0.5-3(2.5)MG/3ML NEB HHN SCH ×4 (02:38→20:40)
[2022-07-03 05:29] LABS: BASOPHILS % 0.2 % (0.0-2.0); EOSINOPHILS % 0.1 % (0.0-5.0); HEMATOCRIT. 35.4 % (42.0-52.0); HEMOGLOBIN. 11.9 g/dL (14.0-18.0); MEAN CORPUSCULAR HEMOGLOBIN 31.3 pg (28.0-32.0); MEAN CORPUSCULAR VOLUME 93.3 fL (80.0-94.0); MONOCYTES % 5.8 % (2.0-8.0); NEUTROPHILS % 81.9 % (40.0-76.0); PLATELET 116 x1000/uL (130-400); RED CELL DISTRIBUTION WIDTH 13.4 % (11.6-14.6)
[2022-07-03] MEDS: LORAZEPAM 2MG/ML CPJ IV PRN ×2 (05:35→09:04)
[2022-07-03 05:40] LABS: CHLORIDE 112 mEq/L (98-107)
[2022-07-03 05:54] LABS: HDL CHOLESTEROL 18 mg/dL (40-59); LDL CHOLESTEROL 40 mg/dL (5-100); T4 FREE 1.28 ng/dL (0.76-1.46)
[2022-07-03] MEDS: VANCOMYCIN 750MG PREMIX 150 ML IV SCH ×3 (06:38→22:17)
[2022-07-03] MEDS: PHENYTOIN 100 MG/4 ML UDC NG SCH ×3 (06:50→22:17)
[2022-07-03 08:58] LABS: BG BASE EXCESS 3.1 mmol/L (-2.0-2.0); BG CARBOXYHEMOGLOBIN 0.3 % (0.5-1.5); BG DEOXYHEMOGLOBIN 0.5 % (0.0-5.0); BG FRACTION INSPIRED OXYGEN 100; BG HCO3 ACT 28.5 mmol/L (22.0-26.0); BG METHEMOGLOBIN 0.2 % (0.0-1.5); BG OXYGEN SATURATION 99.5 % (92.0-98.5); BG PCO2 46.9 mmHg (35.0-45.0); BG PH 7.402 (7.350-7.450); BG PO2 351.6 mmHg (75.0-100.0); BG SAMPLE SITE RIGHT RADIAL; BG TOTAL HEMOGLOBIN 13.4 g/dL (12.0-18.0); BG TOTAL RESPIRATORY RATE 17 b/min; BG VENT MODE VENT - AC
[2022-07-03] MEDS ORDERED: FENTANYL 2500MCG/250ML PMX 250 ML IV ONE (09:45)
[2022-07-03] MEDS ORDERED: MIDAZOLAM HCL 100 MG in SODIUM CHLORIDE 0.9% 80 ML IV PRN (09:45)
[2022-07-03] MEDS: THIAMINE HCL 100MG TABLET PO SCH (10:18)
[2022-07-03] MEDS: LEVETIRACETAM 1,000 MG in SODIUM CHLORIDE 0.9% 100 ML IV SCH ×2 (10:18→21:55)
[2022-07-03] MEDS: PANTOPRAZOLE SODIUM 40 MG/VIAL IV SCH (10:18)
[2022-07-03] MEDS: MEMANTINE HCL 10MG TABLET PO SCH (10:18)
[2022-07-03] MEDS: DONEPEZIL HCL 10MG TABLET PO SCH (10:19)
[2022-07-03] MEDS: PIPERACILLIN/TAZOBACTAM 3.375 G in DEXTROSE 5% WATER 50 ML IV SCH ×2 (11:42→22:21)
[2022-07-03] MEDS: MIDAZOLAM HCL 100 MG in SODIUM CHLORIDE 0.9% 80 ML IV PRN ×2 (11:43→23:13)
[2022-07-03] MEDS ORDERED: PHENYTOIN SODIUM 500 MG in SODIUM CHLORIDE 0.9% 50 ML IV NR ×2 (12:30→17:00)
[2022-07-03] MEDS ORDERED: PIPERACILLIN/TAZOBACTAM 3.375 G in DEXTROSE 5% WATER 50 ML IV SCH (14:00)
[2022-07-03] MEDS: LACTULOSE 20G/30ML UDC PO SCH ×2 (15:13→22:17)
[2022-07-03] MEDS: ENOXAPARIN 80MG/0.8ML SYR SUBCUT SCH (15:14)
[2022-07-03 15:37] LABS: SODIUM URINE RANDOM 120 mEq/L
[2022-07-03] MEDS: FENTANYL CITRATE/PF 2,500 MCG in SODIUM CHLORIDE 0.9% 200 ML IV PRN (16:51)
[2022-07-04] VITALS (31 sets, daily range): BP systolic 85–132; BP diastolic 53–71
[2022-07-04] MEDS: IPRATROPIUM/ALBUTEROL 0.5-3(2.5)MG/3ML NEB HHN SCH ×4 (01:07→20:24)
[2022-07-04] MEDS: ENOXAPARIN 80MG/0.8ML SYR SUBCUT SCH ×2 (02:07→14:56)
[2022-07-04 05:52] LABS: BASOPHILS % 0.4 % (0.0-2.0); EOSINOPHILS % 0.8 % (0.0-5.0); HEMATOCRIT. 34.2 % (42.0-52.0); HEMOGLOBIN. 11.7 g/dL (14.0-18.0); LYMPHOCYTES % 12.1 % (20.0-50.0); MEAN CORPUSCULAR HEMOGLOBIN 31.5 pg (28.0-32.0); MEAN CORPUSCULAR VOLUME 92.2 fL (80.0-94.0); MEAN PLATELET VOLUME 12.1 fl (7.4-10.4); MONOCYTES % 6.5 % (2.0-8.0); NEUTROPHILS % 80.2 % (40.0-76.0); PLATELET 130 x1000/uL (130-400); RED BLOOD CELL COUNT 3.71 mill/uL (4.7-6.1)
[2022-07-04] MEDS: PIPERACILLIN/TAZOBACTAM 3.375 G in DEXTROSE 5% WATER 50 ML IV SCH ×2 (05:52→14:56)
[2022-07-04] MEDS: LACTULOSE 20G/30ML UDC PO SCH ×3 (05:52→21:47)
[2022-07-04] MEDS: PHENYTOIN 100 MG/4 ML UDC NG SCH ×3 (05:52→21:47)
[2022-07-04] MEDS: VANCOMYCIN 750MG PREMIX 150 ML IV SCH ×3 (05:52→21:48)
[2022-07-04 06:04] LABS: CHLORIDE 109 mEq/L (98-107)
[2022-07-04 06:12] LABS: CREATINE KINASE 291 IU/L (39-308)
[2022-07-04 08:12] LABS: BG BASE EXCESS 5.3 mmol/L (-2.0-2.0); BG CARBOXYHEMOGLOBIN 0.4 % (0.5-1.5); BG DEOXYHEMOGLOBIN 2.7 % (0.0-5.0); BG FRACTION INSPIRED OXYGEN 40; BG HCO3 ACT 30.8 mmol/L (22.0-26.0); BG METHEMOGLOBIN 0.3 % (0.0-1.5); BG OXYGEN SATURATION 97.3 % (92.0-98.5); BG OXYHEMOGLOBIN 96.6 % (94.0-97.0); BG PCO2 48.5 mmHg (35.0-45.0); BG PO2 90.7 mmHg (75.0-100.0); BG SAMPLE SITE RIGHT BRACHIAL; BG TOTAL RESPIRATORY RATE 20 b/min; BG VENT MODE VENT - AC
[2022-07-04] MEDS ORDERED: POTASSIUM CHLORIDE INJ 40 MEQ in DEXT 5% WATER 250 ML IV ONE (09:15)
[2022-07-04] MEDS: PANTOPRAZOLE SODIUM 40 MG/VIAL IV SCH (09:45)
[2022-07-04] MEDS: LEVETIRACETAM 1,000 MG in SODIUM CHLORIDE 0.9% 100 ML IV SCH ×2 (09:45→21:17)
[2022-07-04] MEDS: DONEPEZIL HCL 10MG TABLET PO SCH (09:46)
[2022-07-04] MEDS: MEMANTINE HCL 10MG TABLET PO SCH (09:46)
[2022-07-04] MEDS: KCL 20MEQ/100ML X 2 FOR TOTAL KCL 40MEQ/200ML IV SCH ×2 (09:46→11:36)
[2022-07-04] MEDS: THIAMINE HCL 100MG TABLET PO SCH (09:46)
[2022-07-04] MEDS: MIDAZOLAM HCL 100 MG in SODIUM CHLORIDE 0.9% 80 ML IV PRN ×2 (15:19→22:35)
[2022-07-04] MEDS: ACETAMINOPHEN 325MG TABLET PO PRN (17:33)
[2022-07-05] VITALS (40 sets, daily range): BP systolic 81–141; BP diastolic 45–80
[2022-07-05] MEDS: PIPERACILLIN/TAZOBACTAM 3.375 G in DEXTROSE 5% WATER 50 ML IV SCH ×4 (00:47→22:15)
[2022-07-05] MEDS: ENOXAPARIN 80MG/0.8ML SYR SUBCUT SCH ×2 (00:49→12:37)
[2022-07-05] MEDS: IPRATROPIUM/ALBUTEROL 0.5-3(2.5)MG/3ML NEB HHN SCH ×4 (01:36→20:44)
[2022-07-05] MEDS: PHENYTOIN 100 MG/4 ML UDC NG SCH ×3 (05:12→22:16)
[2022-07-05] MEDS: LACTULOSE 20G/30ML UDC PO SCH ×3 (05:12→22:27)
[2022-07-05] MEDS: VANCOMYCIN 750MG PREMIX 150 ML IV SCH ×3 (05:12→22:17)
[2022-07-05 06:36] LABS: BASOPHILS % 0.2 % (0.0-2.0); EOSINOPHILS % 0.7 % (0.0-5.0); HEMATOCRIT. 38.1 % (42.0-52.0); LYMPHOCYTES % 7.8 % (20.0-50.0); MEAN CORPUSCULAR HEMOGLOBIN 31.4 pg (28.0-32.0); MEAN CORPUSCULAR VOLUME 92.2 fL (80.0-94.0); MEAN PLATELET VOLUME 12.4 fl (7.4-10.4); MONOCYTES % 5.7 % (2.0-8.0); NEUTROPHILS % 85.6 % (40.0-76.0); PLATELET 133 x1000/uL (130-400); RED BLOOD CELL COUNT 4.13 mill/uL (4.7-6.1); RED CELL DISTRIBUTION WIDTH 12.8 % (11.6-14.6)
[2022-07-05 06:55] LABS: CHLORIDE 106 mEq/L (98-107)
[2022-07-05 07:04] LABS: PHOSPHORUS 2.3 mg/dL (2.5-4.9)
[2022-07-05] MEDS: PANTOPRAZOLE SODIUM 40 MG/VIAL IV SCH (09:11)
[2022-07-05] MEDS: THIAMINE HCL 100MG TABLET PO SCH (09:12)
[2022-07-05] MEDS: DONEPEZIL HCL 10MG TABLET PO SCH (09:12)
[2022-07-05] MEDS: ACETAMINOPHEN 325MG TABLET PO PRN (09:12)
[2022-07-05] MEDS: MEMANTINE HCL 10MG TABLET PO SCH (09:12)
[2022-07-05] MEDS: LEVETIRACETAM 1,000 MG in SODIUM CHLORIDE 0.9% 100 ML IV SCH ×2 (09:12→20:50)
[2022-07-05 10:58] LABS: BG BASE EXCESS 2.2 mmol/L (-2.0-2.0); BG CARBOXYHEMOGLOBIN 0.3 % (0.5-1.5); BG DEOXYHEMOGLOBIN 3.8 % (0.0-5.0); BG FRACTION INSPIRED OXYGEN 40; BG HCO3 ACT 26.9 mmol/L (22.0-26.0); BG METHEMOGLOBIN 0.1 % (0.0-1.5); BG OXYGEN SATURATION 96.2 % (92.0-98.5); BG OXYHEMOGLOBIN 95.8 % (94.0-97.0); BG PCO2 41.9 mmHg (35.0-45.0); BG PH 7.425 (7.350-7.450); BG PO2 82.3 mmHg (75.0-100.0); BG SAMPLE SITE RIGHT RADIAL; BG TOTAL HEMOGLOBIN 11.2 g/dL (12.0-18.0); BG VENT MODE VENT - AC
[2022-07-05] MEDS ORDERED: POTASSIUM CHLORIDE 20MEQ TABLET SR PO NR (11:30)
[2022-07-05] MEDS ORDERED: POTASSIUM CHLORIDE 20MEQ/PACKET PO NR (12:15)
[2022-07-06] VITALS (46 sets, daily range): BP systolic 78–129; BP diastolic 49–69
[2022-07-06] MEDS: IPRATROPIUM/ALBUTEROL 0.5-3(2.5)MG/3ML NEB HHN SCH ×4 (00:10→20:27)
[2022-07-06] MEDS: ENOXAPARIN 80MG/0.8ML SYR SUBCUT SCH ×2 (01:09→12:40)
[2022-07-06] MEDS: FENTANYL CITRATE/PF 2,500 MCG in SODIUM CHLORIDE 0.9% 200 ML IV PRN (02:45)
[2022-07-06 05:31] LABS: BASOPHILS % 0.3 % (0.0-2.0); EOSINOPHILS % 2.8 % (0.0-5.0); HEMATOCRIT. 31.3 % (42.0-52.0); HEMOGLOBIN. 10.8 g/dL (14.0-18.0); LYMPHOCYTES % 10.1 % (20.0-50.0); MEAN CORPUSCULAR HEMOGLOBIN 31.8 pg (28.0-32.0); MEAN CORPUSCULAR VOLUME 92.1 fL (80.0-94.0); MEAN PLATELET VOLUME 11.6 fl (7.4-10.4); NEUTROPHILS % 80.8 % (40.0-76.0); PLATELET 182 x1000/uL (130-400); RED CELL DISTRIBUTION WIDTH 12.8 % (11.6-14.6)
[2022-07-06 05:57] LABS: CHLORIDE 107 mEq/L (98-107)
[2022-07-06] MEDS: LACTULOSE 20G/30ML UDC PO SCH ×3 (06:14→22:10)
[2022-07-06] MEDS: PHENYTOIN 100 MG/4 ML UDC NG SCH ×3 (06:15→22:10)
[2022-07-06] MEDS: VANCOMYCIN 750MG PREMIX 150 ML IV SCH (06:18)
[2022-07-06] MEDS: PIPERACILLIN/TAZOBACTAM 3.375 G in DEXTROSE 5% WATER 50 ML IV SCH ×3 (06:19→22:09)
[2022-07-06] MEDS ORDERED: POTASSIUM CHLORIDE INJ 40 MEQ in DEXT 5% WATER 250 ML IV ONE (08:00)
[2022-07-06] MEDS ORDERED: POTASSIUM CHLORIDE 20MEQ TABLET SR PO ONE (08:30)
[2022-07-06] MEDS ORDERED: PHENYLEPHRINE 100 MG in DEXT 5% WATER 240 ML IV PRN (08:45)
[2022-07-06] MEDS: DONEPEZIL HCL 10MG TABLET PO SCH (09:24)
[2022-07-06] MEDS: THIAMINE HCL 100MG TABLET PO SCH (09:24)
[2022-07-06] MEDS: LEVETIRACETAM 1,000 MG in SODIUM CHLORIDE 0.9% 100 ML IV SCH ×2 (09:24→21:22)
[2022-07-06] MEDS: KCL 20MEQ/100ML X 2 FOR TOTAL KCL 40MEQ/200ML IV SCH ×2 (09:24→12:41)
[2022-07-06] MEDS: MEMANTINE HCL 10MG TABLET PO SCH (09:24)
[2022-07-06] MEDS: PANTOPRAZOLE SODIUM 40 MG/VIAL IV SCH (09:24)
[2022-07-06 10:16] LABS: BG BASE EXCESS 7.3 mmol/L (-2.0-2.0); BG CARBOXYHEMOGLOBIN 0.3 % (0.5-1.5); BG DEOXYHEMOGLOBIN 2.1 % (0.0-5.0); BG FRACTION INSPIRED OXYGEN 40; BG HCO3 ACT 32.6 mmol/L (22.0-26.0); BG METHEMOGLOBIN 0.2 % (0.0-1.5); BG OXYGEN SATURATION 97.9 % (92.0-98.5); BG OXYHEMOGLOBIN 97.4 % (94.0-97.0); BG PCO2 49.8 mmHg (35.0-45.0); BG PH 7.434 (7.350-7.450); BG PO2 108.7 mmHg (75.0-100.0); BG SAMPLE SITE RIGHT RADIAL; BG TOTAL HEMOGLOBIN 11.1 g/dL (12.0-18.0); BG VENT MODE VENT - AC
[2022-07-06] MEDS: MIDAZOLAM HCL 100 MG in SODIUM CHLORIDE 0.9% 80 ML IV PRN (22:24)
[2022-07-07] VITALS (34 sets, daily range): BP systolic 89–131; BP diastolic 55–80
[2022-07-07] MEDS: ENOXAPARIN 80MG/0.8ML SYR SUBCUT SCH ×2 (01:08→13:33)
[2022-07-07] MEDS: IPRATROPIUM/ALBUTEROL 0.5-3(2.5)MG/3ML NEB HHN SCH ×4 (02:30→20:50)
[2022-07-07 05:12] LABS: BASOPHILS % 0.3 % (0.0-2.0); EOSINOPHILS % 4.2 % (0.0-5.0); HEMATOCRIT. 30.1 % (42.0-52.0); HEMOGLOBIN. 10.3 g/dL (14.0-18.0); LYMPHOCYTES % 13.5 % (20.0-50.0); MEAN CORPUSCULAR HEMOGLOBIN 31.4 pg (28.0-32.0); MEAN CORPUSCULAR VOLUME 92.2 fL (80.0-94.0); MEAN PLATELET VOLUME 11.4 fl (7.4-10.4); MONOCYTES % 7.1 % (2.0-8.0); NEUTROPHILS % 74.9 % (40.0-76.0); PLATELET 242 x1000/uL (130-400); RED BLOOD CELL COUNT 3.26 mill/uL (4.7-6.1)
[2022-07-07 05:15] LABS: CHLORIDE 107 mEq/L (98-107)
[2022-07-07] MEDS: LACTULOSE 20G/30ML UDC PO SCH ×3 (05:38→22:51)
[2022-07-07] MEDS: PIPERACILLIN/TAZOBACTAM 3.375 G in DEXTROSE 5% WATER 50 ML IV SCH ×3 (05:39→22:45)
[2022-07-07] MEDS: PHENYTOIN 100 MG/4 ML UDC NG SCH ×3 (05:39→22:51)
[2022-07-07 09:04] LABS: BG BASE EXCESS 3.3 mmol/L (-2.0-2.0); BG CARBOXYHEMOGLOBIN 0.3 % (0.5-1.5); BG DEOXYHEMOGLOBIN 2.5 % (0.0-5.0); BG FRACTION INSPIRED OXYGEN 40; BG HCO3 ACT 28.4 mmol/L (22.0-26.0); BG METHEMOGLOBIN 0.2 % (0.0-1.5); BG OXYGEN SATURATION 97.5 % (92.0-98.5); BG PCO2 45.1 mmHg (35.0-45.0); BG PH 7.417 (7.350-7.450); BG PO2 97.5 mmHg (75.0-100.0); BG SAMPLE SITE RIGHT RADIAL; BG VENT MODE VENT - AC
[2022-07-07] MEDS: MEMANTINE HCL 10MG TABLET PO SCH (09:18)
[2022-07-07] MEDS: MIDODRINE HCL 5MG TABLET PO SCH (09:19)
[2022-07-07] MEDS: THIAMINE HCL 100MG TABLET PO SCH (09:19)
[2022-07-07] MEDS: DONEPEZIL HCL 10MG TABLET PO SCH (09:19)
[2022-07-07] MEDS: LEVETIRACETAM 1,000 MG in SODIUM CHLORIDE 0.9% 100 ML IV SCH ×2 (09:19→20:58)
[2022-07-07] MEDS: PANTOPRAZOLE SODIUM 40 MG/VIAL IV SCH (09:19)
[2022-07-07] MEDS ORDERED: POLYETHYLENE GLYCOL 3350 (17GM) 1 DOSE PACK PO NR (12:45)
[2022-07-07 13:13] LABS: BG BASE EXCESS 5.9 mmol/L (-2.0-2.0); BG CARBOXYHEMOGLOBIN 0.3 % (0.5-1.5); BG DEOXYHEMOGLOBIN 3.1 % (0.0-5.0); BG FRACTION INSPIRED OXYGEN 40; BG HCO3 ACT 30.2 mmol/L (22.0-26.0); BG METHEMOGLOBIN 0.3 % (0.0-1.5); BG OXYGEN SATURATION 96.9 % (92.0-98.5); BG OXYHEMOGLOBIN 96.3 % (94.0-97.0); BG PH 7.465 (7.350-7.450); BG PO2 85.6 mmHg (75.0-100.0); BG SAMPLE SITE RIGHT RADIAL; BG TOTAL HEMOGLOBIN 12.2 g/dL (12.0-18.0); BG VENT MODE VENT - CPAP
[2022-07-08] VITALS (36 sets, daily range): BP systolic 93–138; BP diastolic 55–84
[2022-07-08] MEDS: ENOXAPARIN 80MG/0.8ML SYR SUBCUT SCH ×2 (02:32→13:24)
[2022-07-08] MEDS: PHENYTOIN 100 MG/4 ML UDC NG SCH ×3 (06:37→17:46)
[2022-07-08] MEDS: LACTULOSE 20G/30ML UDC PO SCH ×3 (06:37→21:27)
[2022-07-08 08:41] LABS: BG BASE EXCESS 4.6 mmol/L (-2.0-2.0); BG CARBOXYHEMOGLOBIN 0.3 % (0.5-1.5); BG DEOXYHEMOGLOBIN 3.4 % (0.0-5.0); BG FRACTION INSPIRED OXYGEN 28; BG HCO3 ACT 28.5 mmol/L (22.0-26.0); BG METHEMOGLOBIN 0.3 % (0.0-1.5); BG OXYGEN SATURATION 96.6 % (92.0-98.5); BG PH 7.471 (7.350-7.450); BG PO2 83.4 mmHg (75.0-100.0); BG SAMPLE SITE RIGHT RADIAL; BG TOTAL HEMOGLOBIN 11.6 g/dL (12.0-18.0); BG VENT MODE COOL AEROSOL
[2022-07-08] MEDS: LEVETIRACETAM 500MG/5ML CUP GT SCH ×2 (09:00→21:27)
[2022-07-08] MEDS: MIDODRINE HCL 5MG TABLET PO SCH (09:03)
[2022-07-08] MEDS: PANTOPRAZOLE SODIUM 40 MG/VIAL IV SCH (09:03)
[2022-07-08] MEDS: THIAMINE HCL 100MG TABLET PO SCH (09:04)
[2022-07-08] MEDS ORDERED: IPRATROPIUM/ALBUTEROL 0.5-3(2.5)MG/3ML NEB HHN PRN (11:00)
[2022-07-08] MEDS ORDERED: PHENYTOIN SODIUM 100MG/2ML VIAL IV ONE (12:30)
[2022-07-08] MEDS: IPRATROPIUM/ALBUTEROL 0.5-3(2.5)MG/3ML NEB HHN SCH ×2 (12:39→21:08)
[2022-07-08] MEDS ORDERED: PHENYTOIN SODIUM 500MG in SODIUM CHLORIDE 0.9% 50ML IV NR (13:30)
[2022-07-08 20:30] LABS: BASOPHILS % 0.3 % (0.0-2.0); EOSINOPHILS % 2.9 % (0.0-5.0); HEMATOCRIT. 34.3 % (42.0-52.0); HEMOGLOBIN. 11.5 g/dL (14.0-18.0); LYMPHOCYTES % 8.1 % (20.0-50.0); MEAN CORPUSCULAR HEMOGLOBIN 31.2 pg (28.0-32.0); MEAN CORPUSCULAR VOLUME 93.3 fL (80.0-94.0); MEAN PLATELET VOLUME 10.6 fl (7.4-10.4); MONOCYTES % 4.8 % (2.0-8.0); NEUTROPHILS % 83.9 % (40.0-76.0); PLATELET 332 x1000/uL (130-400); RED BLOOD CELL COUNT 3.68 mill/uL (4.7-6.1); RED CELL DISTRIBUTION WIDTH 13.1 % (11.6-14.6)
[2022-07-08 20:42] LABS: CHLORIDE 106 mEq/L (98-107)
[2022-07-08 20:46] LABS: PHOSPHORUS 1.9 mg/dL (2.5-4.9)
[2022-07-09] VITALS (26 sets, daily range): BP systolic 94–146; BP diastolic 56–81
[2022-07-09] MEDS: PHENYTOIN 100 MG/4 ML UDC NG SCH ×3 (00:46→12:30)
[2022-07-09] MEDS: ENOXAPARIN 80MG/0.8ML SYR SUBCUT SCH ×2 (00:46→12:29)
[2022-07-09] MEDS: IPRATROPIUM/ALBUTEROL 0.5-3(2.5)MG/3ML NEB HHN SCH ×4 (01:19→21:08)
[2022-07-09 05:07] LABS: HEMATOCRIT 32.6 % (42.0-52.0); HEMOGLOBIN 10.8 g/dL (14.0-18.0); MEAN CORPUSCULAR HEMOGLOBIN 30.6 pg (28.0-32.0); MEAN CORPUSCULAR VOLUME 92.2 fL (80.0-94.0); PLATELET 396 x1000/uL (130-400); RED BLOOD CELL COUNT 3.54 mill/uL (4.7-6.1); RED CELL DISTRIBUTION WIDTH 13.1 % (11.6-14.6)
[2022-07-09 05:18] LABS: CHLORIDE 107 mEq/L (98-107)
[2022-07-09] MEDS: LACTULOSE 20G/30ML UDC PO SCH ×3 (06:22→22:51)
[2022-07-09] MEDS: LEVETIRACETAM 500MG/5ML CUP GT SCH ×2 (08:30→22:51)
[2022-07-09] MEDS: THIAMINE HCL 100MG TABLET PO SCH (08:30)
[2022-07-09] MEDS: PANTOPRAZOLE SODIUM 40 MG/VIAL IV SCH (08:31)
[2022-07-09] MEDS: MIDODRINE HCL 5MG TABLET PO SCH (08:31)
[2022-07-09] MEDS ORDERED: POTASSIUM PHOS,M-BASIC-D-BASIC 30 MMOL in DEXT 5% WATER 500 ML IV NR (11:00)
[2022-07-09] MEDS: ACETAMINOPHEN 325MG TABLET PO PRN (22:55)
[2022-07-10] VITALS (9 sets, daily range): BP systolic 114–145; BP diastolic 50–94
[2022-07-10] MEDS: IPRATROPIUM/ALBUTEROL 0.5-3(2.5)MG/3ML NEB HHN SCH ×4 (02:22→20:04)
[2022-07-10 06:39] LABS: HEMATOCRIT 32.1 % (42.0-52.0); HEMOGLOBIN 10.9 g/dL (14.0-18.0); MEAN CORPUSCULAR HEMOGLOBIN 31.2 pg (28.0-32.0); MEAN CORPUSCULAR VOLUME 91.7 fL (80.0-94.0); PLATELET 405 x1000/uL (130-400); RED CELL DISTRIBUTION WIDTH 13.2 % (11.6-14.6)
[2022-07-10] MEDS: LACTULOSE 20G/30ML UDC PO SCH ×3 (06:54→21:31)
[2022-07-10 06:57] LABS: CHLORIDE 105 mEq/L (98-107)
[2022-07-10] MEDS ORDERED: PHENYTOIN SODIUM 100MG/2ML VIAL IV ONE (09:15)
[2022-07-10] MEDS: MIDODRINE HCL 5MG TABLET PO SCH (09:16)
[2022-07-10] MEDS: PANTOPRAZOLE SODIUM 40 MG/VIAL IV SCH (09:16)
[2022-07-10] MEDS: THIAMINE HCL 100MG TABLET PO SCH (09:16)
[2022-07-10] MEDS: LEVETIRACETAM 500MG/5ML CUP GT SCH ×2 (09:16→21:31)
[2022-07-10] MEDS ORDERED: CEFTRIAXONE 1GM PREMIX 50 ML IV SCH (09:30)
[2022-07-10] MEDS ORDERED: PHENYTOIN SODIUM 500MG in SODIUM CHLORIDE 0.9% 50ML IV NR (11:00)
[2022-07-10] MEDS ORDERED: CEFTRIAXONE 1,000 MG in DEXTROSE 5% WATER 50 ML IV SCH (11:00)
[2022-07-10] MEDS: ENOXAPARIN 80MG/0.8ML SYR SUBCUT SCH (15:12)
[2022-07-10] MEDS: PHENYTOIN 100 MG/4 ML UDC NG SCH ×3 (15:50→21:36)
[2022-07-10] MEDS ORDERED: PHEN100C4 PO (17:25)
[2022-07-10] MEDS: ACETAMINOPHEN 325MG TABLET PO PRN (19:01)
[2022-07-11] VITALS: BP 115/65
[2022-07-11] MEDS: ENOXAPARIN 80MG/0.8ML SYR SUBCUT SCH ×2 (00:32→13:16)
[2022-07-11] MEDS: IPRATROPIUM/ALBUTEROL 0.5-3(2.5)MG/3ML NEB HHN SCH ×3 (01:31→13:25)
[2022-07-11 04:00] VITALS: BP 140/76
[2022-07-11] MEDS: LACTULOSE 20G/30ML UDC PO SCH ×2 (05:25→14:00)
[2022-07-11 06:56] LABS: HEMATOCRIT 31.3 % (42.0-52.0); HEMOGLOBIN 10.5 g/dL (14.0-18.0); MEAN CORPUSCULAR HEMOGLOBIN 30.7 pg (28.0-32.0); MEAN CORPUSCULAR VOLUME 91.8 fL (80.0-94.0); PLATELET 395 x1000/uL (130-400); RED BLOOD CELL COUNT 3.41 mill/uL (4.7-6.1); RED CELL DISTRIBUTION WIDTH 12.8 % (11.6-14.6)
[2022-07-11 07:02] LABS: CHLORIDE 108 mEq/L (98-107)
[2022-07-11 08:00] VITALS: BP 114/68
[2022-07-11] MEDS ORDERED: PANTOPRAZOLE 40MG DR TABLET PO SCH (09:30)
[2022-07-11] MEDS: PHENYTOIN 100 MG/4 ML UDC NG SCH (09:36)
[2022-07-11] MEDS: LEVETIRACETAM 500MG/5ML CUP GT SCH (09:36)
[2022-07-11] MEDS: MIDODRINE HCL 5MG TABLET PO SCH (09:37)
[2022-07-11] MEDS: THIAMINE HCL 100MG TABLET PO SCH (09:37)
[2022-07-11 12:00] VITALS: BP 112/63
[2022-07-11] MEDS: ACETAMINOPHEN 325MG TABLET PO PRN (12:54)
[2022-07-11] MEDS ORDERED: ENOXAPARIN 80MG/0.8ML SYR SUBCUT SCH (23:00)
== END 2022-07-11 14:59 | DRG 720 ==
LOC: ER 12:02 → EDBEDREQ 14:47 → MICUSO 15:04 → EDBEDREQ 15:06 → EDBEDREQTM 15:06 → CVICU 07-03 09:01 → 7WST 07-09 17:24
PROVIDERS: ADMIT Hospitalist; ATTEND Hospitalist
PROC: 5A1955Z Respiratory Ventilation, Greater than 96 Consecutive Hours (ICD-10-PCS; principal; 2022-07-02)
PROC: 0BH17EZ Insertion of Endotracheal Airway into Trachea, Via Natural or Artificial Opening (ICD-10-PCS; 2022-07-02)
PROC: 4A10X4Z Monitoring of Central Nervous Electrical Activity, External Approach (ICD-10-PCS; 2022-07-04)
PROC: 05HY33Z Insertion of Infusion Device into Upper Vein, Percutaneous Approach (ICD-10-PCS; 2022-07-05)
PROC: B54MZZA Ultrasonography of Right Upper Extremity Veins, Guidance (ICD-10-PCS; 2022-07-05)
DX: A41.51 Sepsis due to Escherichia coli [E. coli] (principal); J96.01 Acute respiratory failure with hypoxia; J69.0 Pneumonitis due to inhalation of food and vomit; G40.411 Other generalized epilepsy and epileptic syndromes, intractable, with status epilepticus; I50.43 Acute on chronic combined systolic (congestive) and diastolic (congestive) heart failure; E43 Unspecified severe protein-calorie malnutrition; J15.5 Pneumonia due to Escherichia coli; J44.0 Chronic obstructive pulmonary disease with (acute) lower respiratory infection; F03.93 Unspecified dementia, unspecified severity, with mood disturbance; E83.39 Other disorders of phosphorus metabolism; Z20.822 Contact with and (suspected) exposure to COVID-19; I51.3 Intracardiac thrombosis, not elsewhere classified; M62.82 Rhabdomyolysis; N17.9 Acute kidney failure, unspecified; Z68.24 Body mass index [BMI] 24.0-24.9, adult; I11.0 Hypertensive heart disease with heart failure; J44.9 Chronic obstructive pulmonary disease, unspecified; R74.01 Elevation of levels of liver transaminase levels; F20.9 Schizophrenia, unspecified; R13.10 Dysphagia, unspecified; K21.9 Gastro-esophageal reflux disease without esophagitis; D64.9 Anemia, unspecified; F31.9 Bipolar disorder, unspecified; I25.10 Atherosclerotic heart disease of native coronary artery without angina pectoris; Z78.1 Physical restraint status; Z93.1 Gastrostomy status
CPT/HCPCS: 36415; 36573; 36600; 71045; 74018; 76770; 80048; 80053; 80061; 80185; 80202; 81003; 82140; 82375; 82550; 82805; 82962; 83605; 83735; 83880; 83935; 84100; 84145; 84300; 84439; 84443; 84484; 85025; 85027; 85379; 86850; 86900; 87070; 87077; 87186; 87426; 93005; 93306; 93970; 94002; 94003; 94640; 94660; 95816; 99291; A6261; C1725; C9113; C9803; J0696; J1165; J1650; J1953; J2060; J2250; J2543; J3010; J3370; J3480; J3490; J7030; J7050; J7060; A4315

== ENCOUNTER 2022-07-14 14:08 | Inpatient (IN) | payer MEDICAID ==
[~2022-07-14] VITALS: Ht 182.9 cm; Wt 732.1 kg
[~2022-07-14 14:08] MED LIST changes: -PHEN100C12 PO; -PHEN100C4 PO
[2022-07-14] MEDS ORDERED: CEFTRIAXONE 1GM PREMIX 50 ML IV ONE (15:00)
[2022-07-14] MEDS ORDERED: SODIUM CHLORIDE 0.9% 1000ML BAG (SEPSIS BOLUS) IV ONE (15:00)
[2022-07-14 15:05] LABS: HEMATOCRIT. 37.6 % (42.0-52.0); HEMOGLOBIN. 12.7 g/dL (14.0-18.0); MEAN CORPUSCULAR VOLUME 91.8 fL (80.0-94.0); MEAN PLATELET VOLUME 10.3 fl (7.4-10.4); PLATELET 545 x1000/uL (130-400); RED CELL DISTRIBUTION WIDTH 13.6 % (11.6-14.6)
[2022-07-14 15:12] LABS: CHLORIDE 106 mEq/L (98-107)
[2022-07-14 15:47] LABS: CLARITY URINE CLOUDY (CLEAR); COLOR URINE YELLOW (YELLOW); KETONES URINE NEGATIVE (NEGATIVE); LEUKOCYTE ESTERASE URINE NEGATIVE (NEGATIVE); NITRITE URINE NEGATIVE (NEGATIVE); OCCULT BLOOD URINE NEGATIVE (NEGATIVE); PH URINE 8.5 (4.5-8.0); PROTEIN URINE 1+ (NEGATIVE); SPECIFIC GRAVITY URINE 1.022 (1.005-1.030)
[2022-07-14 15:52] LABS: INR 1.1; PROTHROMBIN TIME 11.3 sec (9.6-11.0)
[2022-07-14 16:44] LABS: PLATELET ESTIMATE INCREASED
[2022-07-14] MEDS ORDERED: SODIUM CHLORIDE 0.9% 1,000 ML IV ONE ×2 (19:00)
[2022-07-14] MEDS ORDERED: AZITHROMYCIN 500 MG in DEXT 5% WATER 250 ML IV SCH (19:00)
[2022-07-14] MEDS ORDERED: ACETAMINOPHEN 650MG SUPP PR ONE (19:15)
[2022-07-14] MEDS ORDERED: AZITHROMYCIN 500MG/250ML 250 ML IV NR (19:15)
[2022-07-15 00:47] VITALS: BP 121/65
[2022-07-15 04:00] VITALS: BP 149/80
[2022-07-15 08:00] VITALS: BP 116/72
[2022-07-15] MEDS ORDERED: HYDROCODONE/ACETAMINOPHEN 5/325MG TABLET PO PRN (09:00)
[2022-07-15] MEDS ORDERED: IPRATROPIUM/ALBUTEROL 0.5-3(2.5)MG/3ML NEB HHN PRN (09:00)
[2022-07-15] MEDS ORDERED: LORAZEPAM 0.5MG TABLET PO PRN (09:00)
[2022-07-15] MEDS ORDERED: NALOXONE HCL 0.4MG/ML VIAL IV PRN (09:00)
[2022-07-15] MEDS ORDERED: ONDANSETRON HCL 4MG/2ML INJ IV PRN (09:00)
[2022-07-15] MEDS ORDERED: ACETAMINOPHEN 325MG TABLET PO PRN ×2 (09:00)
[2022-07-15] MEDS ORDERED: CLONIDINE 0.1MG TABLET PO PRN (09:00)
[2022-07-15] MEDS ORDERED: DOCUSATE SODIUM 100MG CAPSULE PO PRN (09:00)
[2022-07-15] MEDS: PIPERACILLIN/TAZOBACTAM 3.375 G in DEXTROSE 5% WATER 50 ML IV SCH ×3 (09:46→23:50)
[2022-07-15 10:08] LABS: CHLORIDE 105 mEq/L (98-107); HEMATOCRIT. 36.1 % (42.0-52.0); HEMOGLOBIN. 12.2 g/dL (14.0-18.0); MEAN CORPUSCULAR HEMOGLOBIN 31.1 pg (28.0-32.0); MEAN CORPUSCULAR VOLUME 92.3 fL (80.0-94.0); MEAN PLATELET VOLUME 10.1 fl (7.4-10.4); PLATELET 482 x1000/uL (130-400); RED BLOOD CELL COUNT 3.91 mill/uL (4.7-6.1); RED CELL DISTRIBUTION WIDTH 13.7 % (11.6-14.6)
[2022-07-15 10:46] LABS: BG BASE EXCESS 3.1 mmol/L (-2.0-2.0); BG CARBOXYHEMOGLOBIN 0.3 % (0.5-1.5); BG DEOXYHEMOGLOBIN 6.8 % (0.0-5.0); BG HCO3 ACT 25.9 mmol/L (22.0-26.0); BG METHEMOGLOBIN 0.6 % (0.0-1.5); BG OXYGEN SATURATION 93.1 % (92.0-98.5); BG OXYHEMOGLOBIN 92.3 % (94.0-97.0); BG PCO2 33.7 mmHg (35.0-45.0); BG PH 7.503 (7.350-7.450); BG SAMPLE SITE RIGHT RADIAL; BG TOTAL HEMOGLOBIN 13.1 g/dL (12.0-18.0); BG VENT MODE NASAL CANNULA
[2022-07-15] MEDS ORDERED: VANCOMYCIN 1500MG in DEXTROSE 5% WATER 250ML IV NR (11:00)
[2022-07-15 12:00] VITALS: BP 120/78
[2022-07-15] MEDS ORDERED: DONEPEZIL HCL 10MG TABLET PO SCH (12:00)
[2022-07-15] MEDS: DONEPEZIL HCL 5MG TABLET PO SCH (13:40)
[2022-07-15] MEDS: OLANZAPINE 10MG TABLET PO SCH (13:40)
[2022-07-15] MEDS: MEMANTINE HCL 10MG TABLET PO SCH (13:40)
[2022-07-15] MEDS: LEVETIRACETAM 500MG/5ML CUP PO SCH ×2 (13:41→20:50)
[2022-07-15 14:06] LABS: PLATELET ESTIMATE INCREASED
[2022-07-15] MEDS: PHENYTOIN SODIUM 300MG in SODIUM CHLORIDE 0.9% 50ML IV SCH (15:48)
[2022-07-15 16:00] VITALS: BP 118/79
[2022-07-15] MEDS ORDERED: VANCOMYCIN 750MG PREMIX 150 ML IV SCH (18:00)
[2022-07-15] MEDS: VANCOMYCIN 750MG PREMIX 150 ML IV SCH (18:00)
[2022-07-15 20:00] VITALS: BP 147/63
[2022-07-16] VITALS: BP 119/63
[2022-07-16] MEDS: PHENYTOIN SODIUM 300MG in SODIUM CHLORIDE 0.9% 50ML IV SCH (00:13)
[2022-07-16 04:00] VITALS: BP 109/60
[2022-07-16] MEDS: PIPERACILLIN/TAZOBACTAM 3.375 G in DEXTROSE 5% WATER 50 ML IV SCH ×2 (05:03→13:40)
[2022-07-16 05:27] LABS: HEMATOCRIT. 36.9 % (42.0-52.0); HEMOGLOBIN. 12.1 g/dL (14.0-18.0); MEAN CORPUSCULAR HEMOGLOBIN 30.1 pg (28.0-32.0); MEAN CORPUSCULAR VOLUME 92.1 fL (80.0-94.0); MEAN PLATELET VOLUME 10.2 fl (7.4-10.4); PLATELET 471 x1000/uL (130-400); RED BLOOD CELL COUNT 4.01 mill/uL (4.7-6.1); RED CELL DISTRIBUTION WIDTH 13.5 % (11.6-14.6)
[2022-07-16 07:15] LABS: CHLORIDE 104 mEq/L (98-107)
[2022-07-16 08:00] VITALS: BP 131/108
[2022-07-16] MEDS ORDERED: PHENYTOIN SODIUM 1,000 MG in SODIUM CHLORIDE 0.9% 100 ML IV ONE (09:00)
[2022-07-16 09:01] LABS: PLATELET ESTIMATE INCREASED
[2022-07-16] MEDS: MEMANTINE HCL 10MG TABLET PO SCH (09:01)
[2022-07-16] MEDS: DONEPEZIL HCL 5MG TABLET PO SCH (09:01)
[2022-07-16] MEDS: OLANZAPINE 10MG TABLET PO SCH (09:01)
[2022-07-16] MEDS: VANCOMYCIN 750MG PREMIX 150 ML IV SCH ×2 (09:03→19:17)
[2022-07-16] MEDS: LEVETIRACETAM 500MG/5ML CUP PO SCH ×2 (09:03→23:14)
[2022-07-16 12:00] VITALS: BP 107/57
[2022-07-16] MEDS ORDERED: PHENYTOIN SODIUM 500 MG in SODIUM CHLORIDE 0.9% 50 ML IV NR (15:00)
[2022-07-16 16:00] VITALS: BP 117/63
[2022-07-16] MEDS ORDERED: LACTULOSE 20G/30ML UDC PO NR (16:00)
[2022-07-16] MEDS: SODIUM CHLORIDE 0.9% 1,000 ML IV SCH (17:00)
[2022-07-16] MEDS: METOCLOPRAMIDE HCL 10MG/2ML VIAL IV SCH (17:07)
[2022-07-16 20:00] VITALS: BP 121/73
[2022-07-16] MEDS: PHENYTOIN 100 MG/4 ML UDC NG SCH (23:14)
[2022-07-17 00:48] VITALS: BP 113/71
[2022-07-17] MEDS: PIPERACILLIN/TAZOBACTAM 3.375 G in DEXTROSE 5% WATER 50 ML IV SCH ×4 (01:14→21:19)
[2022-07-17] MEDS: METOCLOPRAMIDE HCL 10MG/2ML VIAL IV SCH ×3 (01:21→11:44)
[2022-07-17 04:00] VITALS: BP 140/70
[2022-07-17] MEDS: VANCOMYCIN 750MG PREMIX 150 ML IV SCH ×2 (04:16→19:44)
[2022-07-17] MEDS: SODIUM CHLORIDE 0.9% 1,000 ML IV SCH (04:17)
[2022-07-17] MEDS: PHENYTOIN 100 MG/4 ML UDC NG SCH ×3 (06:31→21:19)
[2022-07-17 06:34] LABS: CHLORIDE 104 mEq/L (98-107)
[2022-07-17 08:00] VITALS: BP 117/71
[2022-07-17] MEDS: DONEPEZIL HCL 5MG TABLET PO SCH (08:44)
[2022-07-17] MEDS: OLANZAPINE 10MG TABLET PO SCH (08:44)
[2022-07-17] MEDS: MEMANTINE HCL 10MG TABLET PO SCH (08:45)
[2022-07-17] MEDS: LEVETIRACETAM 500MG/5ML CUP PO SCH ×2 (08:45→21:19)
[2022-07-17] MEDS ORDERED: POTASSIUM CHLORIDE 20MEQ/PACKET PO NR (10:15)
[2022-07-17 12:00] VITALS: BP 120/54
[2022-07-17 16:00] VITALS: BP 122/62
[2022-07-17] MEDS ORDERED: DOCUSATE SODIUM 100MG CAPSULE PO SCH (17:00)
[2022-07-17 20:00] VITALS: BP 116/68
[2022-07-18] VITALS: BP 113/77
[2022-07-18] MEDS: VANCOMYCIN 750MG PREMIX 150 ML IV SCH (03:47)
[2022-07-18] MEDS: SODIUM CHLORIDE 0.9% 1,000 ML IV SCH ×2 (03:48→16:45)
[2022-07-18 04:00] VITALS: BP 114/68
[2022-07-18] MEDS: PIPERACILLIN/TAZOBACTAM 3.375 G in DEXTROSE 5% WATER 50 ML IV SCH ×3 (05:14→21:59)
[2022-07-18] MEDS: PHENYTOIN 100 MG/4 ML UDC NG SCH (05:14)
[2022-07-18 06:37] LABS: BASOPHILS % 0.7 % (0.0-2.0); EOSINOPHILS % 5.5 % (0.0-5.0); HEMATOCRIT. 33.8 % (42.0-52.0); HEMOGLOBIN. 11.3 g/dL (14.0-18.0); LYMPHOCYTES % 13.7 % (20.0-50.0); MEAN CORPUSCULAR VOLUME 92.4 fL (80.0-94.0); MEAN PLATELET VOLUME 10.5 fl (7.4-10.4); MONOCYTES % 8.9 % (2.0-8.0); NEUTROPHILS % 71.2 % (40.0-76.0); PLATELET 372 x1000/uL (130-400); RED BLOOD CELL COUNT 3.65 mill/uL (4.7-6.1); RED CELL DISTRIBUTION WIDTH 13.2 % (11.6-14.6)
[2022-07-18 06:47] LABS: CHLORIDE 107 mEq/L (98-107)
[2022-07-18 08:00] VITALS: BP 115/76
[2022-07-18] MEDS: LEVETIRACETAM 500MG/5ML CUP PO SCH ×2 (10:49→21:44)
[2022-07-18] MEDS: DOCUSATE SODIUM SUGAR FREE 100MG/10ML UDC NG SCH (10:49)
[2022-07-18] MEDS: OLANZAPINE 10MG TABLET PO SCH (10:50)
[2022-07-18] MEDS: DONEPEZIL HCL 5MG TABLET PO SCH (10:50)
[2022-07-18] MEDS: MEMANTINE HCL 10MG TABLET PO SCH (10:50)
[2022-07-18 12:00] VITALS: BP 107/62
[2022-07-18] MEDS: ENOXAPARIN 40MG/0.4ML SYR SUBCUT SCH (13:01)
[2022-07-18 16:00] VITALS: BP 102/60
[2022-07-18] MEDS ORDERED: VANCOMYCIN 750MG PREMIX 150 ML IV SCH (17:00)
[2022-07-18 20:00] VITALS: BP 104/57
[2022-07-18] MEDS: PHENYTOIN SODIUM 100MG/2ML VIAL IV SCH (21:44)
[2022-07-19] VITALS: BP 100/70
[2022-07-19 04:00] VITALS: BP 130/80
[2022-07-19 04:33] LABS: BASOPHILS % 0.7 % (0.0-2.0); EOSINOPHILS % 5.6 % (0.0-5.0); HEMATOCRIT. 32.7 % (42.0-52.0); HEMOGLOBIN. 11.1 g/dL (14.0-18.0); LYMPHOCYTES % 14.6 % (20.0-50.0); MEAN CORPUSCULAR HEMOGLOBIN 31.3 pg (28.0-32.0); MEAN CORPUSCULAR VOLUME 91.8 fL (80.0-94.0); MEAN PLATELET VOLUME 10.4 fl (7.4-10.4); MONOCYTES % 7.8 % (2.0-8.0); NEUTROPHILS % 71.3 % (40.0-76.0); PLATELET 372 x1000/uL (130-400); RED BLOOD CELL COUNT 3.56 mill/uL (4.7-6.1); RED CELL DISTRIBUTION WIDTH 13.1 % (11.6-14.6)
[2022-07-19 04:39] LABS: CHLORIDE 107 mEq/L (98-107)
[2022-07-19] MEDS: SODIUM CHLORIDE 0.9% 1,000 ML IV SCH ×2 (05:45→17:03)
[2022-07-19] MEDS: PIPERACILLIN/TAZOBACTAM 3.375 G in DEXTROSE 5% WATER 50 ML IV SCH ×3 (05:45→21:37)
[2022-07-19] MEDS: PHENYTOIN SODIUM 100MG/2ML VIAL IV SCH ×3 (05:45→21:37)
[2022-07-19 08:00] VITALS: BP 132/71
[2022-07-19] MEDS: LEVETIRACETAM 500MG/5ML CUP PO SCH ×2 (08:12→21:37)
[2022-07-19] MEDS: MEMANTINE HCL 10MG TABLET PO SCH (08:12)
[2022-07-19] MEDS: DOCUSATE SODIUM SUGAR FREE 100MG/10ML UDC NG SCH (08:12)
[2022-07-19] MEDS: OLANZAPINE 10MG TABLET PO SCH (08:12)
[2022-07-19] MEDS: DONEPEZIL HCL 10MG TABLET PO SCH (08:13)
[2022-07-19 12:00] VITALS: BP 128/72
[2022-07-19] MEDS: ENOXAPARIN 40MG/0.4ML SYR SUBCUT SCH (12:58)
[2022-07-19 16:00] VITALS: BP 123/56
[2022-07-19 20:00] VITALS: BP 123/80
[2022-07-20] VITALS (7 sets, daily range): BP systolic 101–147; BP diastolic 56–99
[2022-07-20] MEDS: SODIUM CHLORIDE 0.9% 1,000 ML IV SCH ×2 (06:18→17:50)
[2022-07-20] MEDS: PHENYTOIN SODIUM 100MG/2ML VIAL IV SCH ×4 (06:18→21:01)
[2022-07-20] MEDS: OLANZAPINE 10MG TABLET PO SCH (08:55)
[2022-07-20] MEDS: LEVETIRACETAM 500MG/5ML CUP PO SCH ×2 (08:55→20:56)
[2022-07-20] MEDS: DONEPEZIL HCL 10MG TABLET PO SCH (08:55)
[2022-07-20] MEDS: MEMANTINE HCL 10MG TABLET PO SCH (08:55)
[2022-07-20] MEDS: DOCUSATE SODIUM SUGAR FREE 100MG/10ML UDC NG SCH (08:55)
[2022-07-20] MEDS: ENOXAPARIN 40MG/0.4ML SYR SUBCUT SCH (12:26)
[2022-07-20] MEDS ORDERED: PHENYTOIN SODIUM 1,000 MG in SODIUM CHLORIDE 0.9% 100 ML IV NR (12:30)
[2022-07-20] MEDS ORDERED: HYDROCODONE/ACETAMINOPHEN 5/325MG TABLET PO PRN (13:00)
[2022-07-21] VITALS: BP 121/73
[2022-07-21 04:00] VITALS: BP 126/69
[2022-07-21] MEDS: PHENYTOIN SODIUM 100MG/2ML VIAL IV SCH (05:16)
== END 2022-07-21 08:13 | DRG 720 ==
LOC: ER 14:08 → EDBEDREQTM 18:59 → EDBEDREQ 18:59 → 8WST 20:56 → EDBEDREQSVC 20:58 → EDBEDREQ 20:58 → EDBEDREQTM 20:58 → ENRESERV 22:44
PROVIDERS: ADMIT Internal Medicine; ATTEND Internal Medicine
DX: A41.9 Sepsis, unspecified organism (principal); J96.21 Acute and chronic respiratory failure with hypoxia; J69.0 Pneumonitis due to inhalation of food and vomit; I21.A1 Myocardial infarction type 2; G93.40 Encephalopathy, unspecified; E46 Unspecified protein-calorie malnutrition; Z68.45 Body mass index [BMI] 70 or greater, adult; D64.9 Anemia, unspecified; F03.93 Unspecified dementia, unspecified severity, with mood disturbance; J44.0 Chronic obstructive pulmonary disease with (acute) lower respiratory infection; F20.9 Schizophrenia, unspecified; I50.22 Chronic systolic (congestive) heart failure; F31.9 Bipolar disorder, unspecified; G40.909 Epilepsy, unspecified, not intractable, without status epilepticus; Z20.822 Contact with and (suspected) exposure to COVID-19; J44.9 Chronic obstructive pulmonary disease, unspecified; J45.909 Unspecified asthma, uncomplicated; R74.01 Elevation of levels of liver transaminase levels; K21.9 Gastro-esophageal reflux disease without esophagitis; I11.0 Hypertensive heart disease with heart failure; R13.12 Dysphagia, oropharyngeal phase; Z93.1 Gastrostomy status
CPT/HCPCS: 36415; 36600; 71045; 74018; 80048; 80053; 80076; 80185; 80202; 81003; 82040; 82375; 82805; 82962; 83605; 84134; 84145; 84484; 85025; 87077; 87186; 87426; 93005; 99291; C9803; J0456; J0696; J1165; J1650; J2543; J2765; J3370; J7030; J7050; J7060

== ENCOUNTER 2022-10-18 11:40 | Emergency (ER) | payer MEDICAID ==
[~2022-10-18] VITALS: Ht 177.8 cm; Wt 54.0 kg
[2022-10-18 11:40] VITALS: RESP 31
[~2022-10-18 11:40] MED LIST changes: -DONE10TA43 PO; -LACT10SO7 PO; -LEVE10006 PO; +LEVO750T68 GT; -MEMA10TA55 PO; -OLAN10TA72 PO
[2022-10-18 11:42] VITALS: O2SAT 0
[2022-10-18 11:50] VITALS: RESP 20
[2022-10-18 11:52] VITALS: BP 60/47; PULSE 63; RESP 30
== END 2022-10-18 12:00 ==
LOC: ER 11:57
DX: I46.9 Cardiac arrest, cause unspecified (principal)
CPT/HCPCS: 31500; 82962; 92950; 99283; 99285